=== PATIENT | female | born 1945 | race Caucasian/White ===

== ENCOUNTER 2024-10-22 07:50 | Outpatient (REF) | payer MEDICARE, SELFPAY ==
--- NOTE | ~2024-10-22 | FL_ITS ---
EXAMINATION: XR FLUOROSCOPY ESOPHAGRAM CLINICAL INFORMATION: Dysphagia, feels food is getting stuck , and sometimes going down the wrong pipe . History of GERD. COMPARISON: None TECHNIQUE: Fluoroscopic air contrast upper GI examination was performed utilizing standard techniques with thin and thick barium and effervescent granules. Numerous spot images were obtained. Several fluoroscopic image hold cine sequences were also obtained. FINDINGS: UPPER GI SERIES: Lateral cine images of the oropharynx and hypopharynx demonstrate normal swallow mechanism with normal epiglottic inversion and soft palate elevation. No laryngeal penetration, glottic or subglottic aspiration identified. No nasopharyngeal reflux present. Hypopharyngeal structures appear normal without evidence of mass or diverticulum. There was no significant cricopharyngeal achalasia. Dual and single contrast images of the esophagus demonstrate normal caliber, contour, and mucosal pattern. No evidence of stricture, mass, or ulcerations identified. Esophageal peristalsis was moderately to severely disordered. There was significant stasis of the esophageal barium column in the RPO position. Near corkscrew appearance at times. Small type I hiatus hernia. Mild gastroesophageal reflux observed during the examination, to the level of the aortic arch. Dual contrast and single contrast images of the stomach demonstrated normal contour. Diffusely thickened rugal folds noted. Innumerable small round and oval filling defects throughout the stomach suggestive of hyperplastic polyps. No gross ulcer or mass. Contrast freely passed into the gastric antrum and duodenal bulb without delay. Single and air-contrast images of the duodenal bulb demonstrate no abnormality. The duodenal sweep has a normal appearance, course, and mucosal fold appearance. Rapid transit of contrast was noted, with contrast reaching the colon in approximately 3 minutes. The small bowel has a normal mucosal fold appearance. FLUOROSCOPY TIME: 3 minutes, 19 seconds Number of Spot Images:10 Number of cines obtained: 18 DOSE AREA PRODUCT: 3877 uGy-m2 (microgray-meter squared) FL/FL barium swallow IMPRESSION: 1. Moderate to severely disordered esophageal peristalsis. 2. Small type I hiatus hernia. 3. Episodic gastroesophageal reflux noted to the level of the aortic arch. 4. Innumerable small round and oval filling defects in the stomach, suggestive of hyperplastic polyps. Recommend correlating with endoscopy. 5. Thickened rugal folds of the stomach suggesting gastritis. 6. Rapid transit of contrast into the colon by 3 minutes, uncertain clinical significance. Normal mucosal appearance of the small bowel. Electronically signed by: Frankie Koehler MD 10/22/2024 09:39 AM EDT RP
--- OUTSIDE RECORDS SUMMARY | 2024-10-22 07:52 | XMS_ITS | Patient Health Record ---
Author Organization [facility] yusra Kinney Address [address] [place] [address] Care Team Providers Care Foundry Technician Name Role Phone EscotoCristien Primary Care Provider Unavailab Indira Alvarez Unavailable [phone] Reason For Referral No Information Encounters Encounter Location Date Provider Diagnosis [facility] [address] [place] [address] 05/06/2024 Indira Kenney Plan Of Treatment No Information Insurance Providers Payer Name Payer Address Payer Phone Subscriber Number Group Number Insured Name Patient Relationship to Insured Coverage Start Date Coverage End Date Medicare National [facility] [address] [place] [address] [id number] Judy Sanchez Self - patient is the insured [place] [employer] [address] [place] [address] [id number] Judy Sanchez Self - patient is the insured
== END 2024-10-22 07:51 | disposition home or self-care (01) ==
LOC: HO.XRAY 07:50
PROVIDERS: PCP Family Medicine; Visit Provider Otolaryngology
DX: R13.10 Dysphagia, unspecified (principal)
CPT/HCPCS: 74220

== ENCOUNTER → 2024-10-22 08:00 | Outpatient (BNV) | payer MEDICARE, SELFPAY | PROVIDERS: PCP Family Medicine; Visit Provider Radiology Diagnostic Radiology | DX: K22.89 Other specified disease of esophagus (principal); K44.9 Diaphragmatic hernia without obstruction or gangrene; K21.9 Gastro-esophageal reflux disease without esophagitis | CPT/HCPCS: 74246 ==

== ENCOUNTER 2025-01-01 16:23 | Observation (INO) | payer MEDICARE, OTHER, SELFPAY ==
--- NOTE | ~2025-01-01 | MR_ITS ---
EXAMINATION: MR BRAIN WITHOUT IV CONTRAST HISTORY: ? acute CVA TECHNIQUE: Sagittal T1, and axial T1, FLAIR, T2, gradient echo, and diffusion weighted MR images of the brain were obtained. COMPARISON: There are no prior studies available for comparison. FINDINGS: The pituitary is normal in size. The cerebellar tonsils are normally located. There is mild prominence of the ventricular system and cortical sulci, consistent with atrophy. Perez/white differentiation is normal. There is no mass effect or midline shift. No intra or extra-axial fluid collections are identified. There are no foci of restricted diffusion. Normal vascular flow voids are noted in the basilar and carotid arteries. The visualized paranasal sinuses are clear. MR/MR head/brain wo con IMPRESSION: No acute intracranial abnormality. No evidence of an acute infarct. Electronically signed by: Gustavo Edwards MD 01/02/2025 02:56 PM EDT
--- NOTE | ~2025-01-01 | CT_ITS ---
EXAMINATION: CT HEAD WITHOUT CONTRAST (STROKE PROTOCOL) CLINICAL INFORMATION: Stroke protocol. Slurred speech COMPARISON: None available. TECHNIQUE: Contiguous axial imaging was performed from the skull base to vertex without intravenous administration of contrast. This CT examination was performed using dose optimization techniques as appropriate, variously including the following: *Automated exposure control *Adjustment of mA and/or kV according to patient size (this includes techniques or standardized protocols for targeted exams where dose is matched to indication/reason for exam; i.e. extremities or head) *Use of iterative reconstruction technique DLP: 823 FINDINGS: There is no acute intra-axial, extra-axial bleed, masses or midline shift. There is no acute infarction evolution. The lateral ventricles are symmetrical in size and configuration without enlargement. Bone windows reveal no calvarial abnormality. Windows reveal no calvarial abnormality. The paranasal sinuses and mastoid air cells are well-aerated aerated. CT/CT head for STROKE IMPRESSION: No acute intracranial process seen. This critical result was discussed with Dr. Loraine Junior at 4:57 PM on 01/01/2025. It was ascertained that the content and urgency of the report was understood at the time of direct communication. Electronically signed by: Eder Oakes MD 01/01/2025 04:59 PM EDT
--- NOTE | ~2025-01-01 | CT_ITS ---
CLINICAL HISTORY: slurred speech difficulty word finding CT angiography head and neck with contrast. 3D Postprocessing. Comparison: None provided Findings: Aortic arch and arch vessels are patent. Mild atherosclerotic vascular disease of the aortic arch. Bilateral common carotid arteries are patent. Mild calcified plaque at bilateral carotid bifurcations with no hemodynamically significant stenosis. Bilateral internal carotid arteries and external carotid arteries are patent with no hemodynamically significant stenosis or occlusion. Bilateral vertebral arteries are patent and enhance normally. Bilateral intracranial internal carotid arteries are patent with calcified plaque in the cavernous segment with no hemodynamically significant stenosis. Vertebral basilar junction is unremarkable. Basilar artery is unremarkable and developmentally small. Bilateral anterior, middle and posterior cerebral arteries are patent. No intracranial large vessel occlusion. Branching pattern appears overall symmetric. No aneurysm. Right thyroid lobe is nodular and somewhat heterogeneous with a 1 cm x 1.1 cm round structure at the lateral aspect with hypodense center which could be in the right thyroid lobe or may represent an adjacent abutting lymph node. No cervical mass or fluid collection. Lung apices grossly clear. No acute fracture. Degenerative changes of the spine. IMPRESSION: 1. CT angiography neck demonstrates no hemodynamically significant stenosis. 2. CT angiography brain demonstrates no intracranial large vessel occlusion. 3. Nodular right thyroid lobe with either nodule with hypodense center in the lateral aspect of the right thyroid lobe versus adjacent abutting necrotic node. Possibility of thyroid malignancy not excluded on the basis of this examination follow-up clinical evaluation in thyroid ultrasound is recommended. This document has been electronically signed by: Bela Miguel MD on 01/01/2025 17:39:09
[2025-01-01 16:27] VITALS: BP 207/84; PULSE 75; RESP 18; TEMP 36.6; O2SAT 99; BMI 34.2
--- NOTE | 2025-01-01 16:29 | ECG_ITS ---
Test Reason : ?STROKE Blood Pressure : */* mmHG Vent. Rate : 62 BPM Atrial Rate : 62 BPM P-R Int : 192 ms QRS Dur : 100 ms QT Int : 414 ms P-R-T Axes : 87 -29 42 degrees QTcB Int : 420 ms Normal sinus rhythm with sinus arrhythmia Moderate voltage criteria for LVH, may be normal variant ( R in aVL , [place] product ) Borderline ECG No previous ECGs available Referred By: Anel Perez Electronically Signed By: KRYSTINA STUART
--- NOTE | 2025-01-01 16:33 | ED.NEUROSD ---
HPI - Neuro Symptoms/Deficit General Chief Complaint: Headache Stated Complaint: slurred speech, sent from PCP Time Seen by Provider: 01/01/25 16:32 Source: patient, family and old records reviewed Mode of arrival: ambulatory Limitations: no limitations History of Present Illness ED Provider: VICKIE PENG Narrative: 79 yo female with PMH of HTN, HLD, GERD here with c/o abrupt onset word finding difficulties while trying to write an e-mail at 330pm today. She couldn't think of the words to write. She called a family member and they also noted her word finding difficulties on the phone. It has since improved. She had no other symptoms and speech was not slurred. She has no recent travel, illness, trauma. She has no hx of afib or stroke. She is not on thinners but only takes aspirin daily. Onset (ago): hour(s) (330pm today) Timing confirmed by: family member Location: speech History of same: No Severity: moderate Relieving factors: rest Exacerbating factors: none Context: sudden onset On Anticoagulants: No Associated symptoms: denies other symptoms Treatments Prior to Arrival: none Related Data Allergies Allergy/AdvReac Type Severity Reaction Status Date / Time Penicillins (PCN) Allergy Unknown Verified 01/01/25 16:32 Sulfa (Sulfonamide Allergy Unknown Verified 01/01/25 16:32 Antibiotics) Review of Systems Review of Systems: Constitutional : No Fever, No Chills, No Fatigue ENT/Mouth : No sore throat, No Rhinorrhea Eyes: No Eye Pain, No Swelling, No Redness Cardiovascular : No Chest Pain, No SOB, No Dyspnea on Exertion Respiratory : No Cough, No Sputum Gastrointestinal : No Nausea, No Vomiting, No Diarrhea, No abdominal Pain Genitourinary : No Dysuria, No Urinary Frequency, No Hematuria, Musculoskeletal : No joint pain, No Myalgias, No Joint Swelling Skin : No Skin Lesions, No rash Neuro : No Weakness, No Numbness, No Dizziness, no Headache All other systems reviewed and are negative PMFSH Past Medical History Attestation statement: The following information was validated with the patient. Source: old records reviewed Medical History GERD (gastroesophageal reflux disease) HLD (hyperlipidemia) HTN (hypertension) Social History Social History (Updated 01/01/25 @ 16:39 by Loraine Junior DO) Patient Tobacco Use Status: Tobacco use Unknown Advance Directives: No Advance Directives Information Provided: No Do you have a plan to hurt others: No Plan Physical Exam Vital Signs: Vital Signs: Last Vital Signs Temp 98.3 F 01/01/25 18:25 Pulse 66 01/01/25 18:25 Resp 18 01/01/25 18:25 BP 125/62 01/01/25 18:25 Pulse Ox 97 01/01/25 18:25 O2 Del Method Room Air 01/01/25 18:25 BMI result Body Mass Index 34.2 Appearance: Alert. Oriented X3. No acute distress. Eyes: Pupils equal, round and reactive to light. ENT: Pharynx normal. Neck: Normal inspection. Neck supple. CVS: Normal heart rate and rhythm. Pulses normal. Respiratory: No respiratory distress. Breath sounds normal. Abdomen: Soft and nontender. Skin: Skin warm and dry. Normal skin color. Normal skin turgor. Extremities: No lower extremity edema. No calf ttp Neuro: Oriented X 3. No motor deficit. No sensory deficit. CN2-12 intact Medications Administered Discontinued Medications Generic Name Dose Route Start Last Admin Trade Name Freq PRN Reason Stop Dose Admin Aspirin 81 mg 01/01/25 18:18 01/01/25 18:27 Aspirin 81 Mg Tab.Chew PO 01/01/25 18:19 81 mg ONCE ONE Administration Iohexol 100 ml 01/01/25 16:56 01/01/25 16:57 Iohexol 350 Mg/Ml 100 Ml Infus..Btl IV 01/01/25 16:57 70 ml ONCE ONE Administration Medical Decision Making Medical Decision Making MDM Narrative: 79 yo female with PMH of HTN, HLD, GERD here with c/o aphasia while writing an e-mail and talking to [employer]. She has NIH 0 on arrival and not a candidate for TNK. She will go through stroke protocol. Possible TIA at this time will need labs, CT head/CTA, EKG for afib. Plan to admit for TIA work up pending his work up Differential Diagnosis Differential Diagnoses: The differential diagnosis associated with the presentation includes TIA, lyte abnormality Admission/Observation Consideration of admission/observation: Escalation of care including admission/observation considered admit for TIA Consult Healthcare Provider Management of the patient was discussed with: Hospitalist (will admit) Lab Data [facility] Lab Attestation statement: I reviewed the patient's lab results. 01/01/25 17:55 01/01/25 17:55 Labs: Lab Results 01/01/25 01/01/25 Range/Units 17:55 17:56 WBC 6.3 (4.8-10.8) X10*3/uL RBC 4.37 (4.20-5.50) X10*6/uL Hgb 12.8 (12.0-16.0) g/dl Hct 36.0 L (37.0-47.0) % MCV 82.4 (80.0-98.0) fL MCH 29.3 (27.0-33.0) pg MCHC 35.6 H (31.0-35.0) g/dl RDW 13.0 (11.0-16.0) % Plt Count 180 (160-400) X10*3/uL MPV 10.0 (9.4-12.3) fL Immature Gran % (Auto) 0.2 (0.0-0.4) % Neut % (Auto) 67.6 (45-73) % Lymph % (Auto) 21.8 (20-40) % [place] % (Auto) 8.0 (2-11) % Eos % (Auto) 1.9 (0-4) % Baso % (Auto) 0.5 (0-2) % Lymph # (Auto) 1.4 (1.2-4.9) X10*3/uL [place] # (Auto) 0.5 (0.1-1.2) X10*3/uL Eos # (Auto) 0.1 (0.0-0.4) X10*3/uL Baso # (Auto) 0.0 (0.0-0.2) X10*3/uL Abs Immat Gran (auto) 0.01 (0.00-0.03) X10*3/uL Absolute Neuts (auto) 4.3 (2.0-8.3) x10*3/uL Absolute Nucleated RBC 0.000 (0.0-0.012) X10*3/uL Nucleated RBC % (auto) 0.0 (0.0-0.2) /100WBC PT 11.4 (10.9-12.4) SEC INR 1.0 (0.9-1.1) APTT 29.2 (26.7-34.1) SEC Sodium 142 (135-145) mmol/L Potassium 4.5 (3.3-5.1) mmol/L Chloride 104 (96-108) mmol/L Carbon Dioxide 32 H (22-29) mmol/L Anion Gap 11 L (12-20) BUN 18 H (9-16) mg/dL Creatinine 0.95 (0.5-1.4) mg/dL Estim Creat Clear Calc 53.1 Estimated GFR 57 Random Glucose 104 (60-115) mg/dL Calcium 9.1 (8.4-10.2) mg/dL Troponin I High Sens 17.6 H (<3.5-17.0) ng/L Triglycerides 112 (<150) mg/dL Cholesterol 145 (<200) mg/dL LDL Cholesterol, Calc 84 (<100) mg/dL HDL Cholesterol 39 L (>40) mg/dL Independent Interpretation I performed an independent interpretation of an: EKG and CT Scan (no ICH, no LVO) Interpretation: Rate: 62 Rhythm: NSR [place]: left Normal P waves. Normal HENRI. Normal QRS complex. ST T wave : inverted t waves V1, LVH noted, no SYBIL qTC: 420 prior studies: no acute ischemia The study has been interpreted contemporaneously by me. . Radiology Impression Discussion of test interpretation with radiology: I have reviewed the radiologist's reading. Independent Historian Clinical information obtained from an independent historian. History obtained from or confirmed by: Other (family) External Record Review External record reviewed: Outpatient record NIH Stroke Scale Internal: Initial- Upon Arrival Level of Consciousness: Alert Level of Consciousness Questions: Answers both questions correctly Level of Consciousness Commands: Performs both tasks correctly Best Gaze: Normal Visual: No visual loss Facial Palsy: Normal Motor Arm (Right): No drift Motor Arm (Left): No drift Motor Leg (Right): No drift Motor Leg (Left): No drift Limb Ataxia: Absent Sensory: Normal Best Language: No aphasia Dysarthia: Normal Extinction and Inattention: No abnormality Score: 0 Critical Care Time Critical Care Time Critical Care Time: Yes Total Critical Care Time: 35 Attestation: review of discussion, family consult, review of records, STROKE protocol, admission I attest to this time spent taking care of the patient Discharge Plan Discharge Clinical Impression: Brain TIA, Thyroid mass Patient Disposition: Admitted As Inpatient Print Language: American
[2025-01-01] MEDS: iohexoL 350 MG/ML 100 ML INFUS..BTL IV (16:57)
[2025-01-01 18:00] LABS: MANUAL DIFF FLAG NO
[2025-01-01 18:02] LABS: Hematocrit 36.0 % (37.0-47.0); Hemoglobin 12.8 g/dl (12.0-16.0); Imm Gran Abs Auto 0.01 X10*3/uL (0.00-0.03); Imm Gran Pct Auto 0.2 % (0.0-0.4); Lymphocytes Absolute Auto 1.4 X10*3/uL (1.2-4.9); Mean Corpuscular HGB Conc 35.6 g/dl (31.0-35.0); Mean Corpuscular Hemoglobin 29.3 pg (27.0-33.0); Mean Corpuscular Volume 82.4 fL (80.0-98.0); NRBC Abs Auto 0.000 X10*3/uL (0.0-0.012); NRBC Pct Auto 0.0 /100WBC (0.0-0.2); Platelet Count 180 X10*3/uL (160-400); Red Blood Count 4.37 X10*6/uL (4.20-5.50); White Blood Count 6.3 X10*3/uL (4.8-10.8)
[2025-01-01 18:16] LABS: Anion Gap 11 (12-20); Blood Urea Nitrogen 18 mg/dL (9-16); Calcium 9.1 mg/dL (8.4-10.2); Carbon Dioxide 32 mmol/L (22-29); Chloride 104 mmol/L (96-108); Cholesterol 145 mg/dL (<200); Creatinine Clr Calc Pharmacy 53.1; Estimated Glomerular Filt Rate 57; HDL Cholesterol 39 mg/dL (>40); Potassium 4.5 mmol/L (3.3-5.1); Sodium 142 mmol/L (135-145); Triglycerides 112 mg/dL (<150)
[2025-01-01 18:23] LABS: Troponin-I High Sensitivity 17.6 ng/L (<3.5-17.0)
[2025-01-01 18:25] VITALS: BP 125/62; PULSE 66; RESP 18; TEMP 36.8; O2SAT 97
[2025-01-01 18:29] LABS: INTERNATIONAL NORM RATIO 1.0 (0.9-1.1); Prothrombin Time 11.4 SEC (10.9-12.4)
[2025-01-01 18:32] LABS: Partial Thromboplastin Time 29.2 SEC (26.7-34.1)
[2025-01-01 19:09] LABS: Stroke Lab Use COMPLETE
--- NOTE | 2025-01-01 19:12 | P.HPHOSP_ITS ---
History of Present Illness Date of Service: 01/01/25 Chief Complaint: difficulty with words This is a 79-year-old female with pertinent history of hypertension, mixed hyperlipidemia, gastroesophageal reflux disease who presents to the emergency department for evaluation of difficulty with speech. Patient states while she was at work she had abrupt onset of difficulty with words while she was trying to type an e-mail. Patient called her daughter who stated that the patient also had difficulty with words on the phone. Patient does not remember but thinks she had word-finding difficulty and difficulty with speech. This only lasted for about 15-20 minutes and resolved. No history of irregular heart rhythm or stroke or ACS in the past. She is compliant with her home medications and takes an aspirin every day. No vision changes extremity. No fever, chills, chest pain, palpitations, shortness of breath, abdominal pain, changes in urinary or bowel habits. In the emergency department, CT head without any acute abnormality. Review of Systems 2 Constitutional: Constitutional: Reports no additional constitutional complaints Cardiovascular: Cardiovascular: Reports no additional cardiovascular complaints Respiratory: Respiratory: Reports no additional respiratory complaints Gastrointestinal: Gastrointestinal: Reports no additional gastrointestinal complaints Genitourinary: Genitourinary: Reports no additional female genitourinary complaints Neurologic: Reports Abnormal speech present [facility] Medical History GERD (gastroesophageal reflux disease) HLD (hyperlipidemia) HTN (hypertension) Pertinent family history: No family history of early CAD Social History Unable to assess alcohol history related to: Unknown Patient Tobacco Use Status: Tobacco use Unknown Smoked in Last 30 Days: No Use of substances other than those prescribed or required for medical reasons: Unknown Advance Directives: No Advance Directives Information Provided: No Do you have a plan to hurt others: No Plan Meds Allergies Allergy/AdvReac Type Severity Reaction Status Date / Time Penicillins (PCN) Allergy Unknown Verified 01/01/25 16:32 Sulfa (Sulfonamide Allergy Unknown Verified 01/01/25 16:32 Antibiotics) Physical Exam 2 Vital Signs and Narrative: Vital Signs: Last Vital Signs Temp 98.3 F 01/01/25 18:25 Pulse 66 01/01/25 18:25 Resp 18 01/01/25 18:25 BP 125/62 01/01/25 18:25 Pulse Ox 97 01/01/25 18:25 O2 Del Method Room Air 01/01/25 18:25 BMI result Body Mass Index 34.2 Const: Other: Elderly female lying in bed in no distress Neck supple, no JVD Regular rate and rhythm, S1-S2 heard Regular breath sounds bilaterally, no wheezing or crackles appreciated Abdomen soft nontender, no guarding, no rigidity Patient is awake, alert and oriented to self, place, time and person ; no focal motor deficit, no pronator drift, no facial droop, or nystagmus Psych: Normal mood No pedal edema Neuro: Speech: Abnormal speech present Results Labs 01/01/25 17:55 01/01/25 17:55 Labs: Laboratory Results - last 24 hr 01/01/25 17:55 MCV 82.4 MCH 29.3 MCHC 35.6 H RDW 13.0 Plt Count 180 MPV 10.0 Immature Gran % (Auto) 0.2 Neut % (Auto) 67.6 Lymph % (Auto) 21.8 [place] % (Auto) 8.0 Eos % (Auto) 1.9 Baso % (Auto) 0.5 Lymph # (Auto) 1.4 [place] # (Auto) 0.5 Eos # (Auto) 0.1 Baso # (Auto) 0.0 Abs Immat Gran (auto) 0.01 Absolute Neuts (auto) 4.3 Absolute Nucleated RBC 0.000 Nucleated RBC % (auto) 0.0 PT 11.4 INR 1.0 APTT 29.2 Anion Gap 11 L Estim Creat Clear Calc 53.1 Estimated GFR 57 Random Glucose 104 Calcium 9.1 Triglycerides 112 Cholesterol 145 LDL Cholesterol, Calc 84 HDL Cholesterol 39 L Imaging Radiologist's Impressions: Impressions Head CT 01/01/25 16:45 IMPRESSION: No acute intracranial process seen. This critical result was discussed with Dr. Loraine Junior at 4:57 PM on 01/01/2025. It was ascertained that the content and urgency of the report was understood at the time of direct communication. Electronically signed by: Eder Oakes MD 01/01/2025 04:59 PM EDT Assessment and Plan (1) Aphasia: Status: Acute Plan This is a 79-year-old female with pertinent history of hypertension, mixed hyperlipidemia, gastroesophageal reflux disease who presents to the emergency department for evaluation of difficulty with speech. #. Expressive aphasia with prominent word-finding difficulty, transient: Symptoms have resolved. Will admit patient with cardiac monitoring for observation. TIA versus acute CVA versus other. Obtaining MRI and consulted Neurology. A1c and lipid panel pending #. Hypertension: Hold antihypertensives for possible acute CVA #. Mixed hyperlipidemia: On statin #. Gastroesophageal reflux disease: On PPI #. Nodular right thyroid lobe on imaging: Outpatient follow-up with thyroid ultrasound. Obtaining TSH Med rec pending DVT prophylaxis: Lovenox Full code. Discussed with patient at bedside Quality Stroke Does the patient have a stroke diagnosis?: No VTE Prior VTE?: No VTE Risk Level:: Medical - moderate - high VTE Device Contraindication: Treatment Not Indicated VTE Drug Contraindication: N/A - Med Ordered
[2025-01-01 20:24] VITALS: BP 194/89; PULSE 56; RESP 18; TEMP 36.5; O2SAT 97
--- NOTE | 2025-01-01 20:33 | PHA.MEDREC ---
Addendum entered by Juice Foley PharmD 01/01/25 20:36: reviewed Original Note: Pharmacy Consult ? Medication Reconciliation Pharmacy has completed the medication reconciliation. Patient was able to confirm all of her medications and they matched claims. Patient states she takes all her medications at bedtime. patient last had her medications last night.
--- NOTE | 2025-01-01 22:00 | PC.NURSE ---
This television script writer assumed care of this Pt at 1900. Pt A&Ox3, pt medicated per JUL for GARCIA. Pt ambulated to BR independent with steady gait. Passed swallow eval, Dr. Sharma made aware. Neuros intant.
--- NOTE | 2025-01-02 | ECG_ITS ---
Test Reason : rhythm change Blood Pressure : */* mmHG Vent. Rate : 68 BPM Atrial Rate : 68 BPM P-R Int : 188 ms QRS Dur : 102 ms QT Int : 418 ms P-R-T Axes : * -36 49 degrees QTcB Int : 444 ms Sinus rhythm with Premature atrial complexes Left axis deviation Moderate voltage criteria for LVH, may be normal variant ( R in aVL , [place] product ) Abnormal ECG When compared with ECG of 01-Jan-2025 17:04, Premature atrial complexes are now Present Referred By: Krystal Sánchez Electronically Signed By: KRYSTINA STUART
[2025-01-02] MEDS: 0.9 % Sodium Chloride Flush 3 ML SYRINGE IVFLUSH (00:01)
[2025-01-02 03:07] VITALS: BP 149/51; PULSE 59; RESP 18; TEMP 36.6; O2SAT 97
[2025-01-02 05:13] LABS: MANUAL DIFF FLAG NO
[2025-01-02 05:15] LABS: Hematocrit 33.0 % (37.0-47.0); Hemoglobin 11.9 g/dl (12.0-16.0); Imm Gran Abs Auto 0.02 X10*3/uL (0.00-0.03); Imm Gran Pct Auto 0.3 % (0.0-0.4); Lymphocytes Absolute Auto 1.1 X10*3/uL (1.2-4.9); Mean Corpuscular HGB Conc 36.1 g/dl (31.0-35.0); Mean Corpuscular Hemoglobin 29.2 pg (27.0-33.0); Mean Corpuscular Volume 81.1 fL (80.0-98.0); NRBC Abs Auto 0.000 X10*3/uL (0.0-0.012); NRBC Pct Auto 0.0 /100WBC (0.0-0.2); Platelet Count 151 X10*3/uL (160-400); Red Blood Count 4.07 X10*6/uL (4.20-5.50); White Blood Count 7.3 X10*3/uL (4.8-10.8)
[2025-01-02 05:43] LABS: Anion Gap 11 (12-20); Blood Urea Nitrogen 18 mg/dL (9-16); Calcium 8.7 mg/dL (8.4-10.2); Carbon Dioxide 31 mmol/L (22-29); Chloride 104 mmol/L (96-108); Creatinine Clr Calc Pharmacy 53.1; Estimated Glomerular Filt Rate 57; Potassium 3.9 mmol/L (3.3-5.1); Sodium 142 mmol/L (135-145)
[2025-01-02 06:00] LABS: Thyroid Stimulating Hormone 4.07 uIU/mL (0.32-4.0)
[2025-01-02 07:10] LABS: Hemoglobin A1C 141.4991 umol/L; Total Hemoglobin (HGBA1C) 3412.3147 umol/L
[2025-01-02 07:11] VITALS: BP 151/49; PULSE 61; RESP 16; TEMP 36.9; O2SAT 97
--- NOTE | 2025-01-02 07:11 | PC.NURSE ---
MRI screening form complete and faxed.
[2025-01-02 07:45] VITALS: BP 176/59; PULSE 58; RESP 20; TEMP 37.2; O2SAT 98
--- NOTE | 2025-01-02 08:05 | P.PNIM_ITS ---
Subjective Subjective Date of Service: 01/03/25 Physical Exam 2 Vital Signs: Vital Signs: Last Vital Signs Temp 98.9 F 01/02/25 07:45 Pulse 58 01/02/25 07:45 Resp 20 01/02/25 07:45 BP 176/59 H 01/02/25 07:45 Pulse Ox 98 01/02/25 07:45 O2 Del Method Room Air 01/02/25 07:45 BMI result Body Mass Index 34.2 Objective Data Active Medications Acetaminophen (Acetaminophen 325 Mg Tablet) 650 mg PO Q6H PRN PRN Reason: Pain, Mild 1-3,fever,headache Last Admin: 01/01/25 21:10 Dose: 650 mg Documented By: JODY Calcium Carbonate (Calcium Carbonate 750 Mg Tab.Chew) 750 mg PO Q4H PRN PRN Reason: Heartburn Enoxaparin Sodium (Enoxaparin Sodium 40 Mg/0.4 Ml Syringe) 40 mg SUBCUT Q24H [facility] Last Admin: 01/01/25 21:11 Dose: 40 mg Documented By: JODY Magnesium Hydroxide (Milk Of Magnesia 30 Ml Oral.Susp) 30 ml PO DAILY PRN PRN Reason: Constipation Melatonin (Melatonin 3 Mg Tablet) 6 mg PO BEDTIME PRN PRN Reason: Insomnia Ondansetron HCl (Ondansetron Hcl 4 Mg/2 Ml Vial) 4 mg IVPUSH Q8H PRN PRN Reason: Nausea and Vomiting Sodium Chloride (0.9 % Sodium Chloride Flush 3 Ml Syringe) 3 ml IVFLUSH QSHIFT [facility] Last Admin: 01/02/25 07:48 Dose: Not Given Documented By: JAZMYNE Non-Admin Reason: See Note Labs 01/03/25 03:34 01/03/25 03:34 Labs: Laboratory Results - last 24 hr 01/01/25 01/01/25 01/02/25 17:55 17:56 05:04 MCV 82.4 81.1 MCH 29.3 29.2 MCHC 35.6 H 36.1 H RDW 13.0 12.9 Plt Count 180 151 L MPV 10.0 9.6 Immature Gran % (Auto) 0.2 0.3 Neut % (Auto) 67.6 73.9 H Lymph % (Auto) 21.8 14.4 L [place] % (Auto) 8.0 9.1 Eos % (Auto) 1.9 1.9 Baso % (Auto) 0.5 0.4 Lymph # (Auto) 1.4 1.1 L [place] # (Auto) 0.5 0.7 Eos # (Auto) 0.1 0.1 Baso # (Auto) 0.0 0.0 Abs Immat Gran (auto) 0.01 0.02 Absolute Neuts (auto) 4.3 5.4 Absolute Nucleated RBC 0.000 0.000 Nucleated RBC % (auto) 0.0 0.0 PT 11.4 INR 1.0 APTT 29.2 Anion Gap 11 L 11 L Estim Creat Clear Calc 53.1 53.1 Estimated GFR 57 57 Random Glucose 104 108 Estimat Average Glucose 123 Hemoglobin A1c % 5.9 Calcium 9.1 8.7 Triglycerides 112 Cholesterol 145 LDL Cholesterol, Calc 84 HDL Cholesterol 39 L TSH 4.07 H Assessment and Plan (1) Aphasia: Status: Acute (2) Brain TIA: Status: Acute (3) Thyroid mass: Status: Acute (4) HTN (hypertension): Status: Acute (5) HLD (hyperlipidemia): Status: Acute (6) GERD (gastroesophageal reflux disease): Status: Acute Plan 79-year-old female with pertinent history of hypertension, mixed hyperlipidemia, gastroesophageal reflux disease who presents to the emergency department for evaluation of difficulty with speech. #. Expressive aphasia with prominent word-finding difficulty, transient: Symptoms have resolved. Will admit patient with cardiac monitoring for observation. TIA versus acute CVA versus other. Obtaining MRI and consulted Neurology. A1c and lipid panel pending #. Hypertension: Hold antihypertensives for possible acute CVA #. Mixed hyperlipidemia: On statin #. Gastroesophageal reflux disease: On PPI #. Nodular right thyroid lobe on imaging: Outpatient follow-up with thyroid ultrasound. Obtaining TSH Med rec pending DVT prophylaxis: Lovenox Full code. Discussed with patient at bedside Quality Stroke Does the patient have a stroke diagnosis?: No VTE Prior VTE?: No VTE Risk Level:: Medical - moderate - high VTE Device Contraindication: Treatment Not Indicated VTE Drug Contraindication: N/A - Med Ordered
--- NOTE | 2025-01-02 08:13 | PC.NURSE ---
Addendum entered by Alice Negrete RN 01/02/25 08:24: MD sent picture of EKG at this time. Noted that he would be down to pt bedside shortly. Primary nurse aware. Original Note: This scrap charger notified of HR rhythm change, leads checked and fixed on PT, this RN still noted rhythm change. EKG order placed, attending Osama notified at this time.
--- NOTE | 2025-01-02 08:38 | P.CNNE_ITS ---
History of Present Illness Data of Consult Service Date: 01/02/25 Primary Care Provider: Juliette Escoto MD HPI Reason for consult: Difficulty speaking 79 years old woman with hypertension who did not take her blood pressure medicine the night before and next day when she was talking she noted that she could not say the words she wanted to say. She tried to type or e-mail message and could not, with the words she wanted to type. There was no associated weakness or numbness or headache. She had not taken any new medicine and she was not sick with cold or flu. These symptoms lasted for about 40 minutes and were resolved when she came to emergency room. She said that something like this had happened once many years ago. Initial evaluation did not reveal any acute finding. Review of Systems 2 Review of Systems: No recent cold or flu-like illness or cardiac symptoms PMFSH Past Medical History Medical History (Updated 01/02/25 @ 08:06 by Krystal Sánchez MD) GERD (gastroesophageal reflux disease) HLD (hyperlipidemia) HTN (hypertension) Social History Social History Unable to assess alcohol history related to: Unknown Patient Tobacco Use Status: Tobacco use Unknown Smoked in Last 30 Days: No Use of substances other than those prescribed or required for medical reasons: Unknown Advance Directives: No Advance Directives Information Provided: No Do you have a plan to hurt others: No Plan Meds Allergies Allergy/AdvReac Type Severity Reaction Status Date / Time Penicillins (PCN) Allergy Unknown Verified 01/01/25 16:32 Sulfa (Sulfonamide Allergy Unknown Verified 01/01/25 16:32 Antibiotics) Active Medications: Current Medications Acetaminophen (Acetaminophen 325 Mg Tablet) 650 mg PO Q6H PRN PRN Reason: Pain, Mild 1-3,fever,headache Last Admin: 01/01/25 21:10 Dose: 650 mg Calcium Carbonate (Calcium Carbonate 750 Mg Tab.Chew) 750 mg PO Q4H PRN PRN Reason: Heartburn Enoxaparin Sodium (Enoxaparin Sodium 40 Mg/0.4 Ml Syringe) 40 mg SUBCUT Q24H JOSE Last Admin: 01/01/25 21:11 Dose: 40 mg Magnesium Hydroxide (Milk Of Magnesia 30 Ml Oral.Susp) 30 ml PO DAILY PRN PRN Reason: Constipation Melatonin (Melatonin 3 Mg Tablet) 6 mg PO BEDTIME PRN PRN Reason: Insomnia Ondansetron HCl (Ondansetron Hcl 4 Mg/2 Ml Vial) 4 mg IVPUSH Q8H PRN PRN Reason: Nausea and Vomiting Sodium Chloride (0.9 % Sodium Chloride Flush 3 Ml Syringe) 3 ml IVFLUSH QSHIFT [facility] Last Admin: 01/02/25 07:48 Dose: Not Given Home Medications ?Medication ?Instructions ?Recorded ?Confirmed ?Last Taken ?Type aspirin 81 mg tablet 81 mg PO BEDTIME 01/01/2512/31/24 History gabapentin 400 mg capsule 400 mg PO BEDTIME 01/01/25 0 01/01/25 12/31/24 History hydrochlorothiazide 12.5 mg tablet 12.5 mg PO BEDTIME 01/01/25 01/01/25 12/31/24 History losartan 25 mg tablet 25 mg PO BEDTIME 01/01/2512/31/24 History nystatin 100,000 unit/gram topical 1 appl topical BID PRN Rash 01/01/25 01/01/25 Unknown History powder pantoprazole 20 mg tablet,delayed 20 mg PO BEDTIME 11/2001/01/25 12/31/24 History release simvastatin 20 mg tablet 20 mg PO BEDTIME 01/01/2512/31/24 History Physical Exam 2 Vital Signs: Vital Signs: Last Vital Signs Temp 98.9 F 01/02/25 07:45 Pulse 58 01/02/25 07:45 Resp 20 01/02/25 07:45 BP 176/59 H 01/02/25 07:45 Pulse Ox 98 01/02/25 07:45 O2 Del Method Room Air 01/02/25 07:45 BMI result Body Mass Index 34.2 Neuro: Other: She is alert and awake with normal spontaneity of speech fluency comprehension and affect. She is able to name and repeat and read with comprehension. Face is symmetrical. Visual hernandez are full. Extraocular muscles were intact. There was no nystagmus or gaze deviation. There was no pronator drift. There was no visual was sensory extinction. Deep tendon reflexes are trace to absent with flexor plantars. There was no focal arm or leg weakness. Speech is normal. Results Labs 01/02/25 05:04 01/02/25 05:04 Labs: Short CBC 01/01/25 01/02/25 Range/Units 17:55 05:04 WBC 6.3 7.3 (4.8-10.8) X10*3/uL Hgb 12.8 11.9 L (12.0-16.0) g/dl Hct 36.0 L 33.0 L (37.0-47.0) % Plt Count 180 151 L (160-400) X10*3/uL BMP 01/01/25 01/02/25 17:55 05:04 Sodium 142 142 Potassium 4.5 3.9 Chloride 104 104 Carbon Dioxide 32 H 31 H BUN 18 H 18 H Creatinine 0.95 0.95 Calcium [address] did not reveal any acute abnormality. Mild cerebellar and cerebral atrophy is noted. CTA of brain and neck did not reveal any large vessel significant disease. A thyroid nodule was noted. Assessment and Plan (1) Aphasia: Status: Acute 79 years old woman with uncontrolled hypertension presented with an episode of motor aphasia. She said that she had a similar episode many years ago. Likely explanation is vascular disease either from uncontrolled hypertension or atherosclerosis resulting in atherothrombotic small vessel or medium size vessel disease. Cerebral embolism is another possibility. My recommendation is to obtain a noncontrast MRI of brain that could put more light into it. Blood pressure control, lipid management, and anti-platelet therapy is recommended. For now I would put her on aspirin 81 mg +clopidogrel 75 mg daily. Cardiac evaluation is also needed as there is fair possibility of cardiac source of embolism. Procedures Date of Service Date of Service: 01/02/25
[2025-01-02 09:05] LABS: Magnesium 2.2 mg/dL (1.6-2.6)
--- NOTE | 2025-01-02 10:35 | MHC.CM.PN ---
Ananya 01/02/25, Pt. lives by herself, she does not have home health services, or use DME. Her dtr Jerrica is HCP, copy requested. PCP confirmed: Juliette Escoto. Pt. is able to arrange transport home at DC, DCP: home, self care, CM to follow for DC needs.
--- NOTE | 2025-01-02 12:42 | PC.NURSE ---
transport here to bring pt down to MRI, pt requesting medications prior to going d/t anxiety. No PRN available, messaged at this time. awaiting new orders at this time.
[2025-01-02 17:15] VITALS: BP 164/60; PULSE 63; RESP 16; TEMP 36.9; O2SAT 95
--- NOTE | 2025-01-02 17:16 | PC.NURSE ---
patient remains in ED, moved into hospital bed in ED 3 for comfort. patient is alert and oriented x4, able to ambulate with steady gait
--- NOTE | 2025-01-02 18:17 | ECG_ITS ---
Test Reason : BRADYCARDIA Blood Pressure : */* mmHG Vent. Rate : 70 BPM Atrial Rate : 70 BPM P-R Int : 186 ms QRS Dur : 100 ms QT Int : 408 ms P-R-T Axes : 75 -34 58 degrees QTcB Int : 440 ms Sinus rhythm with Premature supraventricular complexes and with occasional Premature ventricular complexes Left axis deviation Moderate voltage criteria for LVH, may be normal variant ( R in aVL , José Antonio product ) Abnormal ECG When compared with ECG of 02-Jan-2025 08:12, Premature ventricular complexes are now Present Referred By: Krystal Sánchez Electronically Signed By: KRYSTINA STUART
--- NOTE | 2025-01-02 18:23 | PC.NURSE ---
patient noted to be bradycardic in the 30s on tele, at bedside patient is alert, oriented and stated that she had just came back from the bathroom. patient denies any chest pain/sob/weakness. ekg done, rate showing in 70s contradicting tele monitor reading low 40s. inpatient attending notified and at bedside. there is suspicion that tele monitor deuce are malfunctioning. patient leads changed, rate showing in the 70s-80s.
[2025-01-02 18:57] LABS: Hemoglobin A1C 135.2832 umol/L; Total Hemoglobin (HGBA1C) 3320.3775 umol/L
[2025-01-02 19:00] LABS: Cholesterol 136 mg/dL (<200); HDL Cholesterol 40 mg/dL (>40); Triglycerides 73 mg/dL (<150)
[2025-01-02 22:45] VITALS: BP 185/61; PULSE 69; RESP 12; TEMP 36.4; O2SAT 95
[2025-01-03] VITALS (7 sets, daily range): BP systolic 135–171; BP diastolic 52–72; PULSE 56–63; RESP 12–20; TEMP 36.1–37.1; O2SAT 95–96; BMI 30.6
[2025-01-03 03:40] LABS: MANUAL DIFF FLAG NO
[2025-01-03 03:43] LABS: Hematocrit 33.7 % (37.0-47.0); Hemoglobin 12.3 g/dl (12.0-16.0); Imm Gran Abs Auto 0.01 X10*3/uL (0.00-0.03); Imm Gran Pct Auto 0.2 % (0.0-0.4); Lymphocytes Absolute Auto 1.5 X10*3/uL (1.2-4.9); Mean Corpuscular HGB Conc 36.5 g/dl (31.0-35.0); Mean Corpuscular Hemoglobin 29.6 pg (27.0-33.0); Mean Corpuscular Volume 81.0 fL (80.0-98.0); NRBC Abs Auto 0.000 X10*3/uL (0.0-0.012); NRBC Pct Auto 0.0 /100WBC (0.0-0.2); Platelet Count 158 X10*3/uL (160-400); Red Blood Count 4.16 X10*6/uL (4.20-5.50); White Blood Count 5.6 X10*3/uL (4.8-10.8)
[2025-01-03 04:06] LABS: Alanine Aminotransferase 14 U/L (0-31); Albumin Level 3.7 g/dL (3.5-5.0); Alkaline Phosphatase 52 U/L (39-117); Anion Gap 12 (12-20); Aspartate Amino Transferase 21 U/L (5-31); Blood Urea Nitrogen 16 mg/dL (9-16); Calcium 8.5 mg/dL (8.4-10.2); Carbon Dioxide 29 mmol/L (22-29); Chloride 106 mmol/L (96-108); Creatinine Clr Calc Pharmacy 59.4; Estimated Glomerular Filt Rate > 60; Potassium 3.6 mmol/L (3.3-5.1); Sodium 143 mmol/L (135-145); Total Protein 6.1 g/dL (6.5-8.0)
--- NOTE | 2025-01-03 06:24 | PC.NURSE ---
Patient ambulated to bathroom independently with a steady gait this morning upon waking up.
[2025-01-03] MEDS: 0.9 % Sodium Chloride Flush 3 ML SYRINGE IVFLUSH (07:20)
--- NOTE | 2025-01-03 11:28 | MHC.CM.PN ---
Per ROUND discussion, Patient will have an ECHO today and may be ready to dc to home. CM will follow.
--- NOTE | 2025-01-03 12:00 | CA_ITS ---
Transthoracic Echocardiogram Patient (Last, First, Middle): Judy Sanchez, Gender: Female Date of : 1945 Age: 79 Procedure Date: 01/03/2025 Procedure Type: Transthoracic Echocardiogram Location: ER Height: 162.56 cm Weight: 90.27 kg BSA: 1.95 m2 Heart Rate: 59 bpm BP: 145 / 67 mmHg Flight Deck Officer: MARTHA Referring MD: Krystal Sánchez MD Symptoms: TIA - bigeminy possible LVH/ clearance ECHO Study Quality: Adequate ECG Rhythm: Sinus Conclusions: - The left ventricular systolic function is hyperdynamic. The visually estimated ejection fraction is >70%. - No obvious valvular pathology seen on this study. Findings Left Ventricle Normal left ventricular cavity size. There is mildly increased left ventricular wall thickness. The left ventricular systolic function is hyperdynamic. The visually estimated ejection fraction is >70%. There is no evidence of regional wall motion abnormalities. Right Ventricle Normal right ventricular cavity size and systolic function. Atria Both atria are normal in size. Aortic Valve There is a normal trileaflet aortic valve. There is mild calcification of the aortic valve. There is no aortic valve stenosis. There is no aortic valve regurgitation. Mitral Valve The mitral valve appears normal. There is trace mitral valve regurgitation. There is no mitral valve stenosis. Pulmonic Valve The pulmonic valve is likely normal. Tricuspid Valve There is trace tricuspid valve regurgitation. Tricuspid regurgitation envelope is inadequate for calculation of right ventricular systolic pressure. Great Vessels The asc aorta and aortic arch are normal in size. Venous The inferior vena cava is mildly dilated and collapses less than 50% with inspiration. Pericardium/Pleural There is no evidence of pericardial effusion. Prior Study Comparison No prior study available for comparison. Recommendations, Care & Conclusions No obvious valvular pathology seen on this study. Measurements 2D Linear Measurements IVSd: 1.01 0.6-0.9/0.6-1.0 cm LVIDd: 5.17 3.9-5.3/4.2-5.9 cm LVIDd Index: 2.65 2.4-3.2/2.2-3.1 cm/m2 LVIDs: 2.32 2.0-3.6 cm LVPWd: 1.23 0.7-1.1 cm LA Diam: 4.20 2.7-3.8/3.0-4.0 cm LAIDs Index: 2.15 1.5-2.3 cm/m2 LV Mass: 279.43 67-162/88-224 g LV Mass Index: 143.30 43-95/49-115 g/m2 LVOT Diam: 2.00 3.0+(-)1.3 cm 2D Systolic Function EF 4C: 74.60 >55% EF 2C: 72.20 >55% EF BiP: 72.00 >55% Mitral Valve E'Lateral: 7.29 E'Medial: 6.53 Aortic Valve AoV Pk Brodie: 1.81 AoV Mn Brodie: 1.23 AoV VTI: 0.40 AoV Pk Grad: 13.00 Aov Mn Grad: 7.00 HARRY Cont.VTI: 2.52 LVOT LVOT Pk Brodie: 1.32 LVOT Mn Brodie: 0.94 LVOT VTI: 0.32 LVOT Pk Grad: 7.00 LVOT Mn Grad: 4.00 LVOT Diam: 2.00 LVOT Area: 3.14 Diastolic Function E'Medial: 6.53 E' Laterial: 7.29 Right Ventricle TAPSE (mm): 23.00 TVS' Brodie: 12.30 Tricuspid Valve RA Press: 15.00 Great Vessels Aorta Sinus of Valsalva: 3.20 2.0-3.5 cm Ao Asc: 3.10 2.1-3.4 cm Ao Arch: 3.10 Pulmonary Valve PV Pk Brodie: 1.15 Peak PV Grad: 5.00 Updated in Other Vendor System with Status of Final Luis Angel Jamison MD electronically signed on 01/03/2025 4:07:01 PM with status of Final
--- NOTE | 2025-01-03 17:11 | PM.DS ---
DS: Providers Provider Date of Service: 01/01/25 Date of admission: 01/01/25 19:02 Date of discharge: 01/03/25 Primary care physician: Juliette Escoto MD Consults: 01/01/25 19:29 Consult to Neurology Routine Consulting Provider: [facility] Reason for consultation: Transient expressive aphasia Attending physician on discharge: Krystal Sánchez DS: Diagnosis Discharge Diagnosis (1) Aphasia: Status: Acute (2) Brain TIA: Status: Acute (3) Hyperdynamic circulation: Status: Acute (4) Hypertensive urgency: Status: Acute (5) HTN (hypertension): Status: Acute (6) Thyroid mass: Status: Acute DS: Summary Hospital Course Hospital Course: 79-year-old female with pertinent history of hypertension, mixed hyperlipidemia, gastroesophageal reflux disease who presents to the emergency department for evaluation of difficulty with speech, admitted with TIA secondary to hypertensive urgency in the setting of hyperdynamic LVEF and acute stressfull event at home. The patient suffered a stressful event at home, after which she reports suffering with difficulty with speech. Referred to ED for CVA evaluation. Stroke code was activated in the ED, at which point the patient's symptoms resolved. Event lasted a total of 40 minutes. No hemiplegia, hemiparesis, ataxia, facial drooping. CT brain, MRI brain negative for acute thrombotic or hemorrhagic features. CVA ruled out. ECHO performed revealing hyperdynamic LVEF >70%, no valvulopathy, thrombus or other features. ECG revealed some bigeminy, but otherwise NSR without Afib or tachyarrhythmia or dysrhythmia. Impression: Hypertensive urgency in the setting of hyperdynamic LVEF (CHFpEF) with subsequent TIA (resolving in 40 mins). ABCD2 score: 3 (<3% risk of CVA within 90 days) - low risk. Nodular right thyroid lobe on imaging: Outpatient follow-up with thyroid ultrasound Status at Discharge Cognitive/behavioral status at discharge: Baseline. A&O x4 Functional status at discharge: independent ambulation Overall status at discharge: patient is back to baseline Time Attestation Total time managing care of this patient today: 45 mintues. Discharge Coordination Time (in mins): 15 Quality: Safe Use of Opioids Does Pt have an Active Cancer Diagnosis on the Problem List?: No Quality: Stroke Does the patient have a stroke diagnosis?: No Physical Exam Exam: Exam: General: A&O x3, oriented to time place person and siutaion, comfortable, no pain Cardiac: S1, S2 auscultated with no S3/4, no MRG . Well perfused. Respiratory: Normal breath sounds auscultated throughout all lung zones, without wheezing, rales. Normal rate. GI/ : No abdominal pain on palpation, no masses or distentions. MSK: Normal ambulation without pain at bony prominences or musculature Neurological: Normal neurological examination on overview, without obvious CN II-XII abnormalities. Vital Signs: Vital Signs: Last Vital Signs Temp 98.7 F 01/03/25 15:42 Pulse 63 01/03/25 15:42 Resp 18 01/03/25 15:42 BP 135/61 01/03/25 15:42 Pulse Ox 95 01/03/25 15:42 O2 Del Method Room Air 01/03/25 15:42 BMI result Body Mass Index 30.6 Neuro: Other: She is alert and awake with normal spontaneity of speech fluency comprehension and affect. She is able to name and repeat and read with comprehension. Face is symmetrical. Visual hernandez are full. Extraocular muscles were intact. There was no nystagmus or gaze deviation. There was no pronator drift. There was no visual was sensory extinction. Deep tendon reflexes are trace to absent with flexor plantars. There was no focal arm or leg weakness. Speech is normal. DS: Data Data Completed and Pending Labs on day of discharge: Laboratory Results - last 24 hr 01/02/25 01/02/25 01/03/25 05:04 18:44 03:34 WBC 5.6 RBC 4.16 L Hgb 12.3 Hct 33.7 L MCV 81.0 MCH 29.6 MCHC 36.5 H RDW 12.9 Plt Count 158 L MPV 10.1 Immature Gran % (Auto) 0.2 Neut % (Auto) 60.8 Lymph % (Auto) 26.6 [place] % (Auto) 9.0 Eos % (Auto) 2.9 Baso % (Auto) 0.5 Lymph # (Auto) 1.5 [place] # (Auto) 0.5 Eos # (Auto) 0.2 Baso # (Auto) 0.0 Abs Immat Gran (auto) 0.01 Absolute Neuts (auto) 3.4 Absolute Nucleated RBC 0.000 Nucleated RBC % (auto) 0.0 Sodium 143 Potassium 3.6 Chloride 106 Carbon Dioxide 29 Anion Gap 12 BUN 16 Creatinine 0.85 Estim Creat Clear Calc 59.4 Estimated GFR > 60 Random Glucose 115 Estimat Average Glucose 123 Hemoglobin A1c % 5.9 Calcium 8.5 Total Bilirubin 0.5 AST 21 ALT 14 Alkaline Phosphatase 52 Total Protein 6.1 L Albumin 3.7 Triglycerides 73 Cholesterol 136 LDL Cholesterol, Calc 82 HDL Cholesterol 40 L Discharge Plan Discharge Anticipated Discharge Date/Time: 01/03/25 17:17 Patient Disposition: Home, Self-Care Discharge Diagnosis: Hypertensive urgency in the setting of hyperdynamic LVEF (CHFpEF) with subsequent TIA (resolving in 40 mins). ABCD2 score: 3 (<3% risk of CVA within 90 days) - low risk. Referrals: Juliette Escoto MD [Primary Care Provider, [facility]] - 1 Week Discharge Medications: New carvedilol [Coreg] 3.125 mg tablet 3.125 mg PO BID Qty: 60 1RF Rx Instructions: must administer with a meal/food Continued gabapentin 400 mg capsule 400 mg PO BEDTIME pantoprazole 20 mg tablet,delayed release (DR/EC) 20 mg PO BEDTIME simvastatin 20 mg tablet 20 mg PO BEDTIME losartan 25 mg tablet 25 mg PO BEDTIME nystatin 100,000 unit/gram powder 1 appl topical BID PRN (Reason: Rash) aspirin 81 mg Tablet 81 mg PO BEDTIME Discontinued hydrochlorothiazide 12.5 mg tablet 12.5 mg PO BEDTIME Discharge Orders: Discharge Order (Routine); Ordered 01/03/25 Ordered By: Krystal Sánchez Diet: Advance to usual diet Activity on Discharge: As tolerated Stand Alone Forms: Patient Portal Discharge page Print Language: Telugu Care Plan Goals: Follow up with PCP within 1-2 weeks of discharge Risk reduction for CVA future risk (optimise statins) Health Concerns: Hyperdynamic LVEF - new diagnosis - follow up outpatient cardiology Thyoid nodule identified on imaging incidentally - follow up outpatient US & FNA if appropriate Plan of Treatment: Hyperdynamic LVEF - new diagnosis - follow up outpatient cardiology Thyoid nodule identified on imaging incidentally - follow up outpatient US & FNA if appropriate Assessment: As above. Back to baseline. STOPPED HCTZ - TRANSITIONED TO CARVEDILOL 3.125MG BID PO FOR CARDIOPROTECTIVE BENEFIT Patient Instructions: Stroke (DC) Discharge Date/Time: 01/03/25 18:01
== END 2025-01-03 18:01 | disposition home or self-care (01) ==
LOC: HO.ED 17:56 → HO.EDOVER 19:23 → HO.IMC 01-03 07:44
PROVIDERS: Physician Assistant Medical; Admitting Provider Student in an Organized Health Care Education/Training Program; Emergency Provider Emergency Medicine; PCP Family Medicine; Visit Provider Hospitalist
DX: I16.0 Hypertensive urgency (principal); G45.9 Transient cerebral ischemic attack, unspecified; R47.01 Aphasia; I11.0 Hypertensive heart disease with heart failure; I50.30 Unspecified diastolic (congestive) heart failure; R47.81 Slurred speech; K21.9 Gastro-esophageal reflux disease without esophagitis; E04.1 Nontoxic single thyroid nodule; R94.31 Abnormal electrocardiogram [ECG] [EKG]; R00.1 Bradycardia, unspecified; Z79.899 Other long term (current) drug therapy
CPT/HCPCS: 36415; 70450; 70496; 70498; 70551; 80048; 80053; 80061; 83036; 83735; 84443; 84484; 85025; 85610; 85730; 92610; 93005; 93306; 96372; 99222; 99285; J1650; Q9957; Q9967

== ENCOUNTER → 2025-01-01 16:29 | Outpatient (BNV) | payer MEDICARE, OTHER, SELFPAY | PROVIDERS: Admitting Provider Student in an Organized Health Care Education/Training Program; Emergency Provider Emergency Medicine; PCP Family Medicine; Visit Provider Internal Medicine | DX: Z13.6 Encounter for screening for cardiovascular disorders (principal) | CPT/HCPCS: 93010 ==

== ENCOUNTER → 2025-01-01 16:29 | Outpatient (BNV) | payer MEDICARE, OTHER, SELFPAY | PROVIDERS: Emergency Provider Emergency Medicine; PCP Family Medicine; Visit Provider Specialist | DX: R47.81 Slurred speech (principal) | CPT/HCPCS: 70450 ==

== ENCOUNTER 2025-01-01 19:02 | Outpatient (BNV) | payer MEDICARE, OTHER, SELFPAY | END 2025-01-02 13:17 | PROVIDERS: Admitting Provider Student in an Organized Health Care Education/Training Program; Emergency Provider Emergency Medicine; PCP Family Medicine; Visit Provider Radiology Diagnostic Radiology | DX: R47.9 Unspecified speech disturbances (principal) | CPT/HCPCS: 70551 ==

== ENCOUNTER 2025-01-01 19:02 | Outpatient (BNV) | payer MEDICARE, OTHER, SELFPAY | END 2025-01-02 08:12 | PROVIDERS: Admitting Provider Student in an Organized Health Care Education/Training Program; Emergency Provider Emergency Medicine; PCP Family Medicine; Visit Provider Internal Medicine | DX: I49.3 Ventricular premature depolarization (principal); I49.1 Atrial premature depolarization | CPT/HCPCS: 93010 ==

== ENCOUNTER 2025-01-01 19:02 | Outpatient (BNV) | payer MEDICARE, OTHER, SELFPAY | END 2025-01-03 12:00 | PROVIDERS: Admitting Provider Student in an Organized Health Care Education/Training Program; Emergency Provider Emergency Medicine; PCP Family Medicine; Visit Provider Internal Medicine | DX: I35.8 Other nonrheumatic aortic valve disorders (principal); I51.89 Other ill-defined heart diseases | CPT/HCPCS: 93306 ==

== ENCOUNTER → 2025-01-01 19:02 | Outpatient (BNV) | payer MEDICARE, OTHER, SELFPAY | PROVIDERS: Admitting Provider Student in an Organized Health Care Education/Training Program; Emergency Provider Emergency Medicine; PCP Family Medicine; Visit Provider Psychiatry & Neurology Neurology | DX: R47.01 Aphasia (principal) | CPT/HCPCS: 99223 ==

== ENCOUNTER → 2025-01-01 19:02 | Outpatient (BNV) | payer MEDICARE, OTHER, SELFPAY | PROVIDERS: Admitting Provider Student in an Organized Health Care Education/Training Program; Emergency Provider Emergency Medicine; PCP Family Medicine; Visit Provider Student in an Organized Health Care Education/Training Program | DX: R47.01 Aphasia (principal) | CPT/HCPCS: 99222 ==

== ENCOUNTER 2025-03-17 10:44 | Outpatient (AMB) | payer MEDICARE, SELFPAY ==
--- NOTE | 2025-03-17 10:54 | A.OFFVIS_ITS ---
Vital Signs 03/17/25 10:55 Height 5 ft 4 in Weight 180 lb BMI 30.9 BP 142/64 H Blood Pressure Location Rt brachial Position Sitting Pulse 78 Pulse Source Pulse Oximeter Pulse Oximetry (%) 96 Oxygen Delivery Method Room Air Intake Visit Reasons: gerd Intake Note: New pt for initial eval of GERD + dysphagia. No prior colo found. CC: Pt denies any GI changes or new sx at this time. Moved to the area within the last 2 years. Currently finishing abx for UTI. Pt confirms that her current PPI seems to remain effective with controlling her sx. Property Utilization Officer Required: No Accompanied by: Self / Same As Patient Allergies Penicillins (PCN) Allergy (Verified 03/17/25 10:55) Unknown Sulfa (Sulfonamide Antibiotics) Allergy (Verified 03/17/25 10:55) Unknown HPI HPI gerd: Details: 79-year-old female with past medical history of hyperlipidemia, GERD, hypertension, TIA is here today for initial consultation. Patient recently moved from [place] [facility] [place], [place] to this area. Patient reports that her daughter lives in [place] and she wanted to be closer. Patient has been followed and seen by GI specialist for several decades. Patient had colonoscopy few years ago. Patient is schedule for endoscopy in March with them. Patient is sent to us by her ENT specialist who did order barium swallow that showed: IMPRESSION: 1. Moderate to severely disordered esophageal peristalsis. 2. Small type I hiatus hernia. 3. Episodic gastroesophageal reflux noted to the level of the aortic arch. 4. Innumerable small round and oval filling defects in the stomach, suggestive of hyperplastic polyps. Recommend correlating with endoscopy. 5. Thickened rugal folds of the stomach suggesting gastritis. 6. Rapid transit of contrast into the colon by 3 minutes, uncertain clinical significance. Normal mucosal appearance of the small bowel. Patient reports that she has been taking pantoprazole for many many years. Patient sees reports that she has been taking it at bedtime. Patient reports occasional epigastric pain and acid reflux, however for the most part her symptoms are well controlled. Patient moves her bowels without any issues. Denies melena, hematochezia, unintentional weight loss or ribbon like stools. Patient denies any dyspepsia, dysphagia or odynophagia PFSH Medical History GERD (gastroesophageal reflux disease) HLD (hyperlipidemia) HTN (hypertension) Social History Household Members: None Housing: House Do you presently have visiting nurse or other home services: No Patient Tobacco Use Status: Tobacco use Unknown e-Cigarette/Vaping Use: Never Used Second Hand Smoke Exposure: No service: No Review of Systems Const Denies weight gain and Denies weight loss ENT Reports no additional complaints, Denies dysphagia and Denies odynophagia Card Reports no additional complaints Resp Reports no additional complaints GI Denies abdominal pain, Denies belching, Denies melena, Denies bloating, Denies change in bowel habits, Denies dysphagia, Denies excessive flatus, Denies dyspepsia, Denies heartburn, Denies diarrhea, Denies loose stools, Denies nausea, Denies odynophagia and Denies vomiting Musc Reports no additional complaints Neuro Reports no additional complaints Psych Reports no additional complaints Endo Reports no additional complaints Physical Exam Vital Signs: Last Vital Signs Pulse 78 03/17/25 10:55 BP 142/64 H 03/17/25 10:55 Pulse Ox 96 03/17/25 10:55 Oxygen Delivery Method Room Air 03/17/25 10:55 BMI result Body Mass Index 30.9 Const General: healthy appearing, no acute distress and well developed Nutritional Appearance: well nourished and obese Orientation/consciousness: patient oriented x3 Resp Effort & Inspection: normal respiratory effort, able to speak in complete sentences, no tracheal deviation and symmetric chest movement Auscultation: clear to auscultation bilaterally Cardio Rate: regular rate GI Inspection: Yes normal to inspection, No distended and Yes obesity Palpation (GI): Soft to palpation, not firm, nontender and No hepatosplenomegaly present Auscultation: normal bowel sounds General: Yes no CVA tenderness Back/Spine/Pelvis Back: no CVA tenderness Skin General skin exam: elasticity normal, turgor normal and dry skin Neuro General: patient oriented x3 Psych Appearance: grossly normal Mental Status: mental status grossly normal Assessment & Plan Assessment & Plan (1) GERD (gastroesophageal reflux disease): Code(s): K21.9 - Gastro-esophageal reflux disease without esophagitis Category: Medical Qualifiers: Esophagitis presence: esophagitis presence not specified Qualified Code(s): K21.9 - Gastro-esophageal reflux disease without esophagitis Plan Upper GI series reviewed with patient and discussed. Patient will take the pantoprazole in the morning instead of at bedtime. Avoid dietary triggers in late night snacking. Staying upright for minimum 3 hours after meals discussed with patient. Patient will get of his records from her endoscopy that she will have in March. Please request all the records from GI from [facility]. Patient will return in 3 months, sooner on as needed basis. She is agreeable to this plan and verbalizes understanding of instructions. She was given the opportunity to ask questions and all questions answered. Thank you for allowing me to participate in her care Coding Level of Care Code New Pt Level 3 (56098) Diagnoses Gastroesophageal reflux disease, unspecified whether esophagitis present K21.9 Esophagitis presence: esophagitis presence not specified Time Spent (min) 40 Comment 30 minutes spent with patient and additional 10 minutes spent reviewing her records
[2025-03-17 10:55] VITALS: BP 142/64; PULSE 78; O2SAT 96; BMI 30.9
== END 2025-03-17 11:39 | disposition home or self-care (01) ==
LOC: HO.HGI 10:45
PROVIDERS: PCP Family Medicine; Visit Provider Nurse Practitioner Family
DX: K21.9 Gastro-esophageal reflux disease without esophagitis (principal)
CPT/HCPCS: 99203

== ENCOUNTER → 2025-03-17 10:44 | Outpatient (BNVA) | payer MEDICARE, SELFPAY | PROVIDERS: PCP Family Medicine; Visit Provider Nurse Practitioner Family | DX: K21.9 Gastro-esophageal reflux disease without esophagitis (principal) | CPT/HCPCS: 99202 ==

== ENCOUNTER 2025-04-10 12:19 | Emergency (ER) | payer MEDICARE, OTHER, SELFPAY ==
--- OUTSIDE RECORDS SUMMARY | 2024-06-13 05:30 | XMS_ITS ---
Author Organization [facility] Address [address] [place] [address] Care Team Providers Care Emergency Service Worker Name Role Phone Juliette Escoto Primary Care Provider UnavailIndira Martínez [facility] [phone] Encounters Encounter Location Date Provider Diagnosis [facility] [address] [place] [address] 06/13/2024 Indira Kenney Plan Of Treatment No Information Progress Notes * MADELAINEUrsulaNolviaOB:[birth year] (79 yo F)Acc No.[id number]:06/13/2024 Progress Notes Patient: Judy PLASCENCIA Provider: Guillermo Kenney DPM :1945 A ge:78 Y S ex:Female Date:06/13/2024 Address:[address], [id number] Pcp:Juliette Escoto Subjective: * Chief Complaints: * * Medical History: Objective: * Vitals: Assessment: Plan: * Treatment: * Images: * The named appointment provid er may or may not be the originator of this progress note, and it is not deemed complete until electronically signed by the appointment provider. Sign off status: Pending * Provider: Guillermo Kenney DPM Date: 0 06/13/2024 Generated for Evie baum/Alethea/Myra on: 06/10/2024 04:24 PM EST
--- NOTE | ~2025-04-10 | XR_ITS ---
EXAMINATION: XR CHEST CLINICAL INFORMATION: chest pain COMPARISON: None available. TECHNIQUE: Frontal view of the chest was obtained. FINDINGS: The lungs are well-expanded and clear acute pneumonic process. Heart size and pulmonary vascularity is normal. There is mild dextroscoliosis dorsal spine. No aggressive lytic or sclerotic process seen. XR/XR chest 1V IMPRESSION: Unremarkable chest examination. Electronically signed by: Eder Oakes MD 04/10/2025 01:28 PM EST
--- NOTE | 2025-04-10 12:21 | ECG_ITS ---
Test Reason : chest pain Blood Pressure : */* mmHG Vent. Rate : 61 BPM Atrial Rate : 61 BPM P-R Int : 186 ms QRS Dur : 102 ms QT Int : 398 ms P-R-T Axes : 90 -28 49 degrees QTcB Int : 400 ms Normal sinus rhythm Moderate voltage criteria for LVH, may be normal variant ( R in aVL , [place] product ) Borderline ECG When compared with ECG of 02-Jan-2025 18:13, Premature ventricular complexes are no longer Present Premature supraventricular complexes are no longer Present Referred By: Generic ED Physician Electronically Signed By: EVY SHAW MD
[2025-04-10 12:44] VITALS: BP 192/76; PULSE 62; RESP 18; TEMP 36.7; O2SAT 98; BMI 32.1
--- NOTE | 2025-04-10 12:49 | ED.CHESTPAIN ---
HPI - Chest Pain General Chief Complaint: Chest Pain Stated Complaint: chest pain Time Seen by Provider: 04/10/25 14:16 Source: patient, RN notes reviewed and old records reviewed Mode of arrival: ambulatory History of Present Illness ED Provider: Gina Jacobo PA-C HPI narrative: 79-year-old female with a past medical history GERD, HLD, HTN, TIA, presenting to the ED complaining of left-sided upper chest pain x 2 days described as dull. Admits symptoms have been improving since onset. Saw PCP 2 days ago and had labs/chest x-ray and was told to come to the ED for further eval. reports some pedal edema 2 days ago, improved at present. Denies fever, chills, cough, SOB, calf tenderness MD complaint: chest pain Related Data Home Medications ?Medication ?Instructions ?Recorded ?Confirmed aspirin 81 mg tablet 81 mg PO BEDTIME 01/01/25 01/01/25 gabapentin 400 mg capsule 400 mg PO BEDTIME 01/01/25 01/01/25 losartan 25 mg tablet 25 mg PO BEDTIME 01/01/25 01/01/25 nystatin 100,000 unit/gram topical 1 appl topical BID PRN Rash 01/01/25 01/01/25 powder pantoprazole 20 mg tablet,delayed 20 mg PO BEDTIME 01/01/25 01/01/25 release simvastatin 20 mg tablet 20 mg PO BEDTIME 01/01/25 01/01/25 Previous Rx's ?Medication ?Instructions ?Recorded carvedilol 3.125 mg tablet (Coreg) 3.125 mg PO BID #60 tabs 01/03/25 furosemide 20 mg tablet (Lasix) 20 mg PO DAILY 5 days #5 tabs 04/10/25 Allergies Allergy/AdvReac Type Severity Reaction Status Date / Time Penicillins (PCN) Allergy Unknown Verified 04/10/25 12:46 Sulfa (Sulfonamide Allergy Unknown Verified 04/10/25 12:46 Antibiotics) Review of Systems Review of Systems: Yes all other systems are reviewed and are negative Constitutional: Constitutional: Reports as per [facility] Past Medical History Attestation statement: The following information was validated with the patient. Source: old records reviewed Medical History GERD (gastroesophageal reflux disease) HLD (hyperlipidemia) HTN (hypertension) Social History Social History Household Members: None Housing: House Do you presently have visiting nurse or other home services: No Patient Tobacco Use Status: Tobacco use Unknown Smoked in Last 30 Days: No e-Cigarette/Vaping Use: Never Used Second Hand Smoke Exposure: No Advance Directives: No Advance Directives Information Provided: Yes service: No Physical Exam Vital Signs: Vital Signs: Last Vital Signs Temp 98.1 F 04/10/25 17:08 Pulse 59 04/10/25 17:08 Resp 16 04/10/25 17:08 BP 193/79 H 04/10/25 17:08 Pulse Ox 96 04/10/25 17:08 O2 Del Method Room Air 04/10/25 17:08 BMI result Body Mass Index 32.1 Const: General: cooperative, healthy appearing and no acute distress Orientation/consciousness: patient oriented x3 Limitations: no limitations HEENT: Head: Yes normal to inspection and Yes atraumatic Ears: hearing grossly normal bilaterally General nose exam: Normal external nose present Face and sinus: Yes normal facial exam Eyes: General: appearance normal, both eyes and all related structures EOM: EOMs intact bilaterally Neck: Neck: Yes normal visual inspection and Yes no meningeal signs Chest: Chest palpation & inspection: normal inspection of the chest, no crepitus and no tenderness Resp: Effort & Inspection: normal respiratory effort and no respiratory distress Auscultation: clear to auscultation bilaterally, no crackles and no wheezes Cardio: Rate: regular rate Heart sounds: S1 normal heart sound present and S2 normal heart sound present GI: Inspection: Yes normal to inspection Palpation (GI): Soft to palpation, nontender, no guarding and not rigid : General: Yes no CVA tenderness Back/Spine/Pelvis: Back: no CVA tenderness Skin: Rashes: no rashes Wounds: no wounds Neuro: General: patient oriented x3, tone normal and no meningeal signs Cranial nerves: Yes CN's II-XII intact bilaterally Gait exam (Neuro): Normal gait present Extrem: Other: 1+ nonpitting bilateral pedal edema General: Yes no calf tenderness Course Course Course Narrative: RmE: [age] year female presents to ED for left-sided chest pain for the past 2 days. Patient will be referred to ED by [facility]. Patient is also states left arm pain. EKG labs x-ray ordered - Initial troponin 15.6 > will obtain repeat. - BNP elevated to 635.2 > no SOB/hypoxia or Significant pedal edema. Asymptomatic in regards to CHF. CXR also without effusions/interstitial edema. XR chest 1V IMPRESSION: Unremarkable chest examination. -1633-- repeat troponin without rise, mi unlikely. > With shared decision-making will initiate patient on 20 mg of p.o. Lasix x5 days with close PCP follow-up for repeat labs/re-evaluation. Patient admits she currently takes baby aspirin daily. Has stress test scheduled and cardiology referral was placed by PCP. Will also refer to our chemical preparer. Results discussed with patient including worrisome signs and symptoms and strict return precautions, and when to return to the emergency department. They verbalized understanding and feel safe for discharge at this time. Medical Decision Making Medical Decision Making [facility] Narrative: 79-year-old female with a past medical history GERD, HLD, HTN, TIA, presenting to the ED complaining of left-sided upper chest pain x 2 days described as dull. on exam hypertensive, NAD, talking in complete sentences, lungs CTA, 1+ nonpitting pedal edema. Concern for ACS vs CHF. low suspicion for dissection, DVT, PE plan: EKG, labs, CXR, re-evaluate Please refer to course for remaining clinical decision making, interpretation of labs/imaging results, and discussions with consultants and/or family members. Differential Diagnosis Differential Diagnoses: The differential diagnosis associated with the presentation includes As above Admission/Observation Consideration of admission/observation: Escalation of care including admission/observation considered Lab Data [facility] Lab Attestation statement: I reviewed the patient's lab results. 04/10/25 13:23 04/10/25 13:23 Labs: Lab Results 04/10/25 04/10/25 Range/Units 13:23 15:27 WBC 6.6 (4.8-10.8) X10*3/uL RBC 4.21 (4.20-5.50) X10*6/uL Hgb 12.4 (12.0-16.0) g/dl Hct 35.4 L (37.0-47.0) % MCV 84.1 (80.0-98.0) fL MCH 29.5 (27.0-33.0) pg MCHC 35.0 (31.0-35.0) g/dl RDW 13.0 (11.0-16.0) % Plt Count 165 (160-400) X10*3/uL MPV 10.5 (9.4-12.3) fL Immature Gran % (Auto) 0.2 (0.0-0.4) % Neut % (Auto) 67.4 (45-73) % Lymph % (Auto) 18.3 L (20-40) % [place] % (Auto) 9.2 (2-11) % Eos % (Auto) 4.1 H (0-4) % Baso % (Auto) 0.8 (0-2) % Lymph # (Auto) 1.2 (1.2-4.9) X10*3/uL [place] # (Auto) 0.6 (0.1-1.2) X10*3/uL Eos # (Auto) 0.3 (0.0-0.4) X10*3/uL Baso # (Auto) 0.1 (0.0-0.2) X10*3/uL Abs Immat Gran (auto) 0.01 (0.00-0.03) X10*3/uL Absolute Neuts (auto) 4.4 (2.0-8.3) x10*3/uL Absolute Nucleated RBC 0.000 (0.0-0.012) X10*3/uL Nucleated RBC % (auto) 0.0 (0.0-0.2) /100WBC PT 12.6 (11.2-13.5) SEC INR 1.0 (0.9-1.1) APTT 31.0 (26.7-34.1) SEC Sodium 143 (135-145) mmol/L Potassium 4.1 (3.3-5.1) mmol/L Chloride 108 (96-108) mmol/L Carbon Dioxide 28 (22-29) mmol/L Anion Gap 11 L (12-20) BUN 17 H (9-16) mg/dL Creatinine 1.00 (0.5-1.4) mg/dL Estim Creat Clear Calc 47.0 Estimated GFR 54 Random Glucose 111 (60-115) mg/dL Calcium 8.8 (8.4-10.2) mg/dL Total Bilirubin 0.4 (0.0-1.0) mg/dL AST 24 (5-31) U/L ALT 16 (0-31) U/L Alkaline Phosphatase 53 (39-117) U/L Troponin I High Sens 15.6 14.5 (<3.5-17.0) ng/L NT-Pro-B Natriuret Pep 635.2 H (<300) pg/mL Total Protein 6.6 (6.5-8.0) g/dL Albumin 4.1 (3.5-5.0) g/dL Urine Color Dark Yellow Urine Appearance Clear Urine pH 5.0 (5.0-9.0) Ur Specific [place] 1.025 (1.005-1.025) Urine Protein Trace (Neg-Trace) mg/dL Urine Glucose (UA) Negative (Negative) mg/dL Urine Ketones Negative (Negative) mg/dL Urine Blood Negative (Negative) Urine Nitrite Negative (Negative) Ur Leukocyte Esterase Small (1+) H (Negative) Urine RBC 0-2 (0-2) /HPF Urine WBC 0-5 (0-5) /HPF Ur Squamous Epith Cells 3-5 (0-2) /HPF Urine Bacteria Trace (None Seen) Hyaline Casts 0-2 (0-2) /LPF Independent Interpretation I performed an independent interpretation of an: EKG ( my interpretation: Normal sinus rhythm rate of 61. PVCs no longer present when compared to prior. No STEMI.) Radiology Impression Discussion of test interpretation with radiology: I have reviewed the radiologist's reading. External Record Review External record reviewed: Inpatient record, Office record, Outpatient record, Prior outpatient labs, Prior outpatient radiology, Primary care record and Outside ED record Tests considered The following testing was considered but not selected: As above Prescription Management I considered prescription management with: Other Chronic Conditions Patient?s care impacted by: Hypertension and Other (TIA) Social Determinants Patient?s care significantly limited by Social Determinants of Health including: Other Social Determinant of Health Discharge Plan Discharge Clinical Impression: Atypical chest pain Patient Disposition: Home, Self-Care Instructions: Chest Pain (DC), Leg Edema (ED) Additional Instructions: your blood work is reassuring. Your BNP is elevated however your chest x-ray does not show fluid overload Lasix is a diuretic, please take daily for the next 5 days as prescribed. You should have close follow up with her PCP for repeat labs in the next 5-7 days and re-evaluation If yourchest pain persists, worsens, you have shortness of breath, swelling in your legs, or fever return to the ED Prescriptions: New furosemide [Lasix] 20 mg tablet 20 mg PO DAILY 5 Days Qty: 5 0RF No Action gabapentin 400 mg capsule 400 mg PO BEDTIME pantoprazole 20 mg tablet,delayed release (DR/EC) 20 mg PO BEDTIME simvastatin 20 mg tablet 20 mg PO BEDTIME losartan 25 mg tablet 25 mg PO BEDTIME nystatin 100,000 unit/gram powder 1 appl topical BID PRN (Reason: Rash) aspirin 81 mg Tablet 81 mg PO BEDTIME carvedilol [Coreg] 3.125 mg tablet 3.125 mg PO BID Qty: 60 1RF Rx Instructions: must administer with a meal/food Referrals: [facility] [Provider Group] - 1 week Juliette Escoto MD [Primary Care Provider, Family Practice] - 2 days Interventions: ED Discharge Assessment Last Done: 04/10/25 17:08 Discharge Date/Time: 04/10/25 17:08 Print Language: Omani
[2025-04-10 13:32] LABS: MANUAL DIFF FLAG NO
[2025-04-10 13:34] LABS: Hematocrit 35.4 % (37.0-47.0); Hemoglobin 12.4 g/dl (12.0-16.0); Imm Gran Abs Auto 0.01 X10*3/uL (0.00-0.03); Imm Gran Pct Auto 0.2 % (0.0-0.4); Lymphocytes Absolute Auto 1.2 X10*3/uL (1.2-4.9); Mean Corpuscular HGB Conc 35.0 g/dl (31.0-35.0); Mean Corpuscular Hemoglobin 29.5 pg (27.0-33.0); Mean Corpuscular Volume 84.1 fL (80.0-98.0); NRBC Abs Auto 0.000 X10*3/uL (0.0-0.012); NRBC Pct Auto 0.0 /100WBC (0.0-0.2); Platelet Count 165 X10*3/uL (160-400); Red Blood Count 4.21 X10*6/uL (4.20-5.50); White Blood Count 6.6 X10*3/uL (4.8-10.8)
[2025-04-10 13:36] LABS: Appearance Urine Clear; Glucose Urine UA Negative (Negative); PH 5.0 (5.0-9.0); Specific Gravity - Urine 1.025 (1.005-1.025); UMIC TRIGGER UACC YES
[2025-04-10 13:45] LABS: INTERNATIONAL NORM RATIO 1.0 (0.9-1.1); Prothrombin Time 12.6 SEC (11.2-13.5)
[2025-04-10 13:48] LABS: Partial Thromboplastin Time 31.0 SEC (26.7-34.1)
[2025-04-10 13:50] LABS: Alanine Aminotransferase 16 U/L (0-31); Albumin Level 4.1 g/dL (3.5-5.0); Alkaline Phosphatase 53 U/L (39-117); Anion Gap 11 (12-20); Aspartate Amino Transferase 24 U/L (5-31); Blood Urea Nitrogen 17 mg/dL (9-16); Calcium 8.8 mg/dL (8.4-10.2); Carbon Dioxide 28 mmol/L (22-29); Chloride 108 mmol/L (96-108); Creatinine Clr Calc Pharmacy 47.0; Estimated Glomerular Filt Rate 54; Potassium 4.1 mmol/L (3.3-5.1); Sodium 143 mmol/L (135-145); Total Protein 6.6 g/dL (6.5-8.0)
[2025-04-10 13:52] LABS: UACC Culture Trigger YES
[2025-04-10 13:57] LABS: NT Pro B Type Natriuretic Pept 635.2 pg/mL (<300); Troponin-I High Sensitivity 15.6 ng/L (<3.5-17.0)
[2025-04-10 15:22] VITALS: BP 178/54; PULSE 63; RESP 19; TEMP 36.8; O2SAT 97
--- NOTE | 2025-04-10 15:56 | PC.NURSE ---
Patient on the phone with family member/friend, laughing constantly. Repeat troponin level drawn, awaiting results.
[2025-04-10 16:01] LABS: Troponin-I High Sensitivity 14.5 ng/L (<3.5-17.0)
--- OUTSIDE RECORDS SUMMARY | 2025-04-10 16:24 | XMS_ITS | Patient Health Record ---
Author Organization [facility] Address [address] [place] [address] Care Team Providers Care Plum Packer Name Role Phone EscotoCristien Primary Care Provider Unavailab Indira Alvarez Unavailable [phone] Reason For Referral No Information Encounters Encounter Location Date Provider Diagnosis [facility] [address] [place] [address] 05/06/2024 Indira Kenney Plan Of Treatment No Information Insurance Providers Payer Name Payer Address Payer Phone Subscriber Number Group Number Insured Name Patient Relationship to Insured Coverage Start Date Coverage End Date Medicare [facility] [address] [place] [address] [id number] Judy Sanchez Self - patient is the insured [place] [employer] [address] [place] [address] [id number] Judy Sanchez Self - patient is the insured
--- OUTSIDE RECORDS SUMMARY | 2025-04-10 16:24 | XMS_ITS ---
Author Name Interface, [id number] lity Address [address] [place] [address] [facility] Oncology matology Address [address] [place] [address] Support Name Relationship Address Phone Jerrica Burkett Child Unknown Unavailable Allergies and Adverse Reactions Medication/Group Name Reaction Severity Date Sulfa (Sulfonamide Antibiotics) Fever 01/15/2024 Penicillins Hives 01/15/2024 Plan Date Type Value 01/07/2025 APPOINTMENT LAB 15 MIN-OV 15 MIN 01/07/2025 APPOINTMENT LAB 15 MIN-OV 15 MIN 01/15/2024 APPOINTMENT LAB 15 MIN-OV 15 MIN 01/15/2024 APPOINTMENT LAB 15 MIN-OV 15 MIN 01/15/2024 LAB_ORDER CBC w/auto diff with reflex 01/15/2024 LAB_ORDER CMP 01/15/2024 LAB_ORDER LDH panel 01/07/2025 LAB_ORDER CBC w/auto diff with reflex 01/07/2025 LAB_ORDER CMP Reason for Visit LAB 15 MIN-OV 15 MIN Encounters Date Name 01/15/2024 Breast cancer, femal e Diagnostic Results Date Type Test Units Lower Limit Upper Limit Result Flag Comments Status Ordered By Specimen Source Lab Address 01/14 CBC w/aut o diff with refle x WBC x10^3/ uL 4.4 10.4 6.84 FINAL Celio Akbar [facility], [address] [place] [address] [id number] 01/14 CBC w/aut o diff with refle x RBC x10^6/ uL 4.2 5.4 4.58 [facility], [address] [place] [address] [id number] 01/14 CBC w/aut o diff with refle x HGB g/dL 12.0 16.0 13.7 FINAL [facility], [address] [facility] [id number] 0 01/14 CBC w/aut o diff with refle x HCT % 37.0 47.0 39.3 FINAL [facility], [address] [facility] [id number] 0 01/14 CBC w/aut o diff with refle x MCV fL 80.0 98.0 85.8 FINAL [facility], [address] [facility] [id number] 0 01/14 CBC w/aut o diff with refle x MCH pg 28.0 32.0 29.9 FINAL [facility], [address] [facility] [id number] 0 01/14 CBC w/aut o diff with refle x MCHC g/dL 30.7 34.7 34.9 High FINAL [facility], [address] [facility] [id number] 0 01/14 CBC w/aut o diff with refle x RDW-S D 37.0 54.0 39.3% FINAL [facility], [address] [facility] [id number] 0 01/14 CBC w/aut o diff with refle x RDW % 11.5 14.5 12.8 FINAL [facility], [address] [facility] [id number] 0 01/14 CBC w/aut o diff with refle x PLT x10^3/ uL 120.0 400.0 180 FINAL [facility], [address] [facility] [id number] 0 01/14 CBC w/aut o diff with refle x MPV fL 6.5 12.0 9.6 FINAL [facility], [address] [facility] [id number] 0 01/14 CBC w/aut o diff with refle x Smear revie w None [facility], [address] [place] [id number] 0 01/14 CBC w/aut o diff with refle x NRBC % /100WB C 0.0 9.0 0.0 [facility], [address] [place] [id number] 0 01/14 CBC w/aut o diff with refle x NRBC, absol jordin, x 10^3/ uL x10^3/ uL 0.0 0.1 0.00 [facility], [address] [place] [id number] 0 01/14 CBC w/aut o diff with refle x Uma % % 40.0 70.0 75.6 High FINAL [facility], [address] [facility] [id number] 0 01/14 CBC w/aut o diff with refle x LY % % 15.0 41.0 17.0 FINAL [facility], [address] [place] [id number] 0 01/14 CBC w/aut o diff with refle x MO % % 2.0 8.0 5.4 [facility], [address] [place] [id number] 0 01/14 CBC w/aut o diff with refle x EO % % 0.0 3.0 1.3 FINAL [facility], [address] [place] [id number] 0 01/14 CBC w/aut o diff with refle x BA % % 0.0 1.0 0.6 [facility], [address] [place] [id number] 0 01/14 CBC w/aut o diff with refle x IG % % 0.0 1.0 0.1 FINAL [facility], [address] [facility] [id number] 0 01/14 CBC w/aut o diff with refle x Uma # (ANC) x10^3/ uL 2.0 8.4 5.17 [facility], [address] [facility] [facility] [id number] 0 01/14 CBC w/aut o diff with refle x LY # x10^3/ uL 0.7 5.1 1.16 [facility], [address] [facility] [id number] 0 01/14 CBC w/aut o diff with refle x MO # x10^3/ uL 0.0 1.6 0.37 [facility], [address] [facility] [facility] [id number] 0 01/14 CBC w/aut o diff with refle x EO # x10^3/ uL 0.0 1.1 0.09 FINAL [facility], [address] [facility] [facility] [id number] 0 01/14 CBC w/aut o diff with refle x BA # x10^3/ uL 0.0 0.2 0.04 FINAL [facility], [address] [facility] [facility] [id number] 0 01/14 CBC w/aut o diff with refle x IG # x10^3/ uL 0.0 0.1 0.01 FINAL [facility], [address] [facility] [id number] 0 01/14 LDH panel LDH U/L 140.0 271.0 192 FINAL [facility], [address] [facility] [facility] [id number] 0 01/14 CMP Bilir ubin, total mg/dL 0.3 1.0 0.6 FINAL [facility], [address] [facility] [id number] 0 01/14 CMP AST/S GOT U/L 13.0 39.0 15 FINAL [facility], [address] [place] [id number] 0 01/14 CMP ALT/S GPT U/L 7.0 52.0 13 FINAL [facility], [address] [place] [id number] 0 01/14 CMP Alkal ine phosp hatas e U/L 34.0 104.0 52 FINAL [facility], [address] [place] [id number] 0 01/14 CMP Gluco se mg/dL 70.0 105.0 171 High FINAL [facility], [address] [place] [id number] 0 01/14 CMP BUN mg/dL 7.0 25.0 21 FINAL [facility], [address] [facility] [id number] 0 01/14 CMP Creat inine mg/dL 0.6 1.3 0.95 FINAL [facility], [address] [place] [id number] 0 01/14 CMP Calci um mg/dL 8.4 10.5 9.0 FINAL [facility], [address] [place] [id number] 0 01/14 CMP Total prote in g/dL 6.3 8.2 7.1 FINAL [facility], [address] [facility] [id number] 0 01/14 CMP Album in g/dL 3.5 5.0 4.1 FINAL [facility], [address] [place] [id number] 0 01/14 CMP Sodiu m mEq/L 135.0 145.0 140 FINAL [facility], [address] [facility] [id number] 0 01/14 CMP Potas sium mEq/L 3.4 5.0 3.7 FINAL [facility], [address] [place] [id number] 0 01/14 CMP Chlor scarlet, mEq/L mEq/L 96.0 107.0 100 FINAL [facility], [address] [facility] [id number] 0 01/14 CMP CO2 salo nt mEq/L 21.0 31.0 34 High FINAL [facility], [address] [facility] [id number] 0 01/14 CMP GFR estim ate mL/min /1.73m 2 57 Low Normal Range:Nor mal renal function >or= 60Moderat charlee decreased 30 - 59Severel y decreased 15 - 29Renal Failure < 15Please note the GFR value should be multiplie d by 1.210 if the patient is -A merican. FINAL [facility], [address] [facility] [id number] 0 Medications Date Name Route Dose Frequency Instructions Start Date End Date Status Fill Status Indication 01/26 [place] 3-DHA-E PA-Fish Oil Oral Delayed Release 60 mg-90 mg-500 mg PO 1.0 capsul e,rodolfo yed releas e(DR/E C) DAILY active 03/27 Pantopr azole (Sodium ) Oral Delayed Release PO 1.0 tablet ,delay ed releas e (DR/EC ) QD active 11/18 Gabapen tin Oral PO 1.0 capsul e daily active 03/27 Coenzym e Q10 Oral PO 1.0 tablet QD active 03/27 Losarta n Oral PO 1.0 tablet QD active 03/27 Choleca lcifero l Oral PO 1.0 capsul e QD active 03/27 Simvast atin Oral PO 1.0 tablet QD active 03/09 Cyanoco balamin Oral PO QD active 03/27 Hydroch lorothi azide Oral PO 1.0 tablet QD active 03/27 Aspirin Oral Delayed Release (Enteri c Coated) PO 1.0 tablet ,delay ed releas e (DR/EC ) QD active 01/26 Biotin Oral PO 1.0 tablet DAILY PRN active 12/23 nystati n 100 UNT/MG Topical Powder topicall y 1.0 applic ation 3 times per day 2022 active Breast cancer, female Problems Diagnosis Status Date of Diagnosis Resolution Date Breast cancer, female Active Vital Signs Date Type Value 01/15/2024 Intravascular Systolic 103 01/15/2024 Intravascular Diastolic 42 01/15/2024 Body Temperature 96.80 01/15/2024 Pain Scale 0.00 01/15/2024 Weight 82.10 01/15/2024 Oxygen Saturation 96.00 01/15/2024 BMI 30.94 01/15/2024 BSA 1.88 01/15/2024 Respiratory Rate 16.00 01/15/2024 Heart Beat 68.00 01/15/2024 Height 162.90 Notes Section * Follow-up <html><head></head><body><div style= text-align:center ><span class= clinicalNoteMacroWysiwyg id= [id number] macroname=&qu ot;PracticeLetterhead spantype= macro title= #PracticeLetterhead ><img src= [id number] ></span>
</div><div style= text-align:left >
</div><div style="text-align:left >Patient Name: <span class= clinicalNoteMacroWysiwyg id="[id number] macroname= PatientName spantype= macro title= #PatientName >JAIME BURKETT</span></div><div style= text-align:left >Patient : <span class= clinicalNoteMacroWysiwyg id= [id number] macroname= PatientDateOfBirth spantype= macro title= #Pa tientDateOfBirth >1945</span></div><div style= text-align:left&quo t;>Patient MRN: <span class= clinicalNoteMacroWysiwyg id= [id number] macroname= PatientMRN spantype= macro title= #PatientMRN &g t;[id number]</span></div><div style= text-align:left >
</div><div style= text-align:left >Primary Oncologist: <span class= clinicalNoteM Heysiwyg id= [id number] macroname= AttendingPhysician span type= macro title= #AttendingPhysician >Jessica Cortez (Medical Oncology, H ematology), Celio Bolden (Hematology/Oncology)</span></div><div style= t ext-align:left >Referring Physician: <span class= clinicalNoteMaAlbertoysiwyg id= [id number] macroname= ReferringPhysician spantype= macro" title= #ReferringPhysician > </span></div><div style= text- align:left >
</div><div style= text-align:left >Date of Service: 01/15/2024

<span class= clinicalNoteSectionVisible id= [id number] internalbreaksection= false" originalname= Chief Complaint recognizeconcepts= true spantype= section suppressempty= false >Chief Complaint</span>
This is scheduled follow up for right breast cancer.

I feel fine

<span class= clinicalNoteSectionVisible id= [id number] i nternalbreaksection= false originalname= HPI recognizeconcepts= true" spantype= section suppressempty= false >HPI</span>
Patientis a 78-year-old woman who had routine screening mammography on 02/21/2018 which showed an asymmetryin the right upper outer breast. She proceeded with diagnostic mammogram ultrasound whichshowed 8 mm right upper quadrant mass 13 cm from the nipple. Biopsy of this lesion on 03/05/2018 revealed invasive ductal carcinoma, moderately differentiated, ER strongly positive greater than 90%, ME greater than 90%, Ki-67 less than 10%, HER-2 negative. MRI of bilateral breasts show no multifocal disease or contralateral disease or abnormal adenopathy. She proceeded with right lumpectomy with sentinel lymph node biopsy on 04/03/[address] Rizvi showing [id number] invasive ductal carcinoma. Patient completed radiation therapy under the care of Dr. Arechiga. She started Arimidex in May 2018, stopped briefly due to concern for side effects however these were felt to be likely secondary to flulike viral illness. She resumed Arimidex in July 2018. She continuesto tolerate them well except for mild arthralgias.
Bilateral breast mammogram on 03/11/2021 showed no mammographic evidence of malignancy in either breast. DEXA scan 03/03/2020 revealed bone mineral densities.

She had mammogram done in March 2022 which showed no concerns. DEXA scan in March 2022 showed stable osteopenia compared to her last DEXA from July 2019.
She underwent bilateral mammogram on 04/03/2023 showed benign posttreatment changes in the right breast. No evidence of malignancy in either breast.
She completed 5 years of anastrozole in the end of May 2023.&nbs p;

<strong><span style= font-size:14px >Interval history:</span></strong>

Patient is here today for her scheduled follow-up. She is clinically stable and reports feeling well overall. She has completed 5 years of AI and is now on observation. Patient denies any fevers, chills, night sweats, weight loss, loss of appetite, new bone pain, headaches, blurry vision, shortness of breath, chest pain, change in bowel or bladder habits, blood in urine or stool, focal neurologic weaknes s.

<span class= clinicalNoteSectionVisible id=& quot;[id number] internalbreaksection= false originalname= Past M edical History recognizeconcepts= true spantype= section suppressempty=& quot;false >Past Medical History</span>
Hypertension, gastroesophageal reflux disease, dyslipidemia, vitamin D deficiency, osteoarthritis, osteopenia - now normal BMD per 02/2020 DEXA.

<span class= clinicalNoteSectionVisible id= [id number] internalbreaksection= false originalname= Surgical History recognizeconcepts= true spantype= section suppressempty= false >Surgical History</span>
<span class= clinicalNoteMacroWysiwyg" id= [id number] macroname= Surgeries parameters= LookBackD ays:All,ListType:Bulleted spantype= macro title= #Surgeries(LookBackDays:All,L istType:Bulleted) > </span><div style= text-align:left ><span style= font-size:14px ><span class= clinicalNoteMacroWysiwyg id= [id number] macroname= OtherProcedures parameters=& quot;Label:Other Procedures,LookBackDays:All spantype= macro title= #OtherProc edures(Label:Other Procedures,LookBackDays:All) ></span></span></div><span style= font-size:14px > </span><div style= text-align:left ><span style= font-size:14px >Lumpectomy and sentinel lymph node biopsy as detailed in HPI.</span>

</div>

<span style= font-size :14px ></span>

<span class= clinicalNoteSectionVisible" id= [id number] internalbreaksection= false originalname= Allergies recognizeconcepts= true spantype= section suppressempty= false >Allergies</span>
<span class= clinicalNoteMacroWysiwyg i d= [id number] macroname= Allergies parameters= ListType:Bulleted spantype= macro title= #Allergies(ListType:Bulleted) ><ul> &l t;li>Penicillins</li> <li>Sulfa (Sulfonamide Antibiotics)</li></ul></s hernandez>

<span class= clinicalNoteSectionVisible id= [id number] internalbreaksection= false originalname= Medications rec ognizeconcepts= true spantype= section suppressempty= false >Medi cations</span>
<span class= clinicalNoteMacroWysiwyg id= [id number] macroname= PatientMedications parameters= ListType:Bulleted&quot ; spantype= macro title= #PatientMedications(ListType:Bulleted) ><ul><li>Biotin Oral 1 tablet PO DAILY PRN</li> <li>Losartan Oral 25 mg tablet 1 tablet PO QD</li> <li>Ecotrin (Aspirin Oral Delayed Release (Enteric Coated)) 81 mg tablet,delayed release (DR/EC) 1 tablet,delayed release (DR/EC) PO QD</li> <li>Fish Oil ([place] 6-SAD-SIP-Fish Oil Oral Delayed Release 60 mg-90 mg-500 mg) 1 capsule,delayed release(DR/EC) PO DAILY</li> <li>Hydrochlorothiazide Oral 12.5 mg tablet 1 tablet PO QD</li> <li>Pantoprazole (Sodium) Oral Delayed Release 20 mg tablet,delayed release (DR/EC) 1 tablet,delayed release (DR/EC) PO QD</li> <li>Co Q-10 (Coenzyme Q10 Oral) 100 mg tablet 1 tablet PO QD</li> <li>Simvastatin Oral 20 mg tablet 1 tablet PO QD</li> <li>Vitamin B-12 (Cyanoc obalamin Oral) 1,000 mcg capsule PO QD</li> <li>Nystatin Topical Powder 100,000 unit/gram powder 1 application topically 3 times per day.</li> <li>Vitamin D3 (Cholecalciferol Oral) 50 mcg (2,000 unit) tablet 1 capsule PO QD</li> <li>Gabapentin Oral 400 mg capsule1 capsule PO daily</li></ul></span>

<span class= clinicalNoteSectionVisible id= [id number] internalbreaksection= false" originalname= Social History recognizeconcepts= true spantype= section suppressempty= false >Social History</span>
<span class=&qu ot;clinicalNoteMacroWysiwyg id= [id number] macroname= PatientSmok ingStatus parameters= Label:Smoking Status spantype= macro title= # PatientSmokingStatus(Label:Smoking Status) >Smoking Status Smoking Tobacco : none found; Smokeless Tobacco : none found; Vaping : none found</span>
<div style= text-align:left >
</div><span style= font-size:14px > </span><div style= text-align:left ><span style= font-size:14px >No significant alcohol or drug use. She smokes half pack a day for 20 years, quit in , , has 1 child. </span>

</div>

<span style= font- size:14px ></span>

<span class= clinicalNoteSectionVisible id= [id number] internalbreaksection= false originalname=& quot;Family History recognizeconcepts= true spantype= section suppressem pty= false >Family History</span>
<span class= clinicalNotOhio State East HospitalcroWysiwyg id= [id number] macroname= FamilyHistory parameters=& quot;ListType:Bulleted spantype= macro title= #FamilyHistory(ListType:Bulleted ) > </span><div style= text-align:left ><span style= font- size:14px >Prostate cancer in brother, multiple family members with cardiac history.</span>

</div>

<span style= font- size:14px ></span>

<span class= clinicalNoteSectionVisible id= [id number] internalbreaksection= false" originalname= Review of Systems recognizeconcepts= true spantype= section suppressempty= false >Review of Systems</span>
<span style= font- size:14px ></span><div style= text-align:left ><div><span style= font- size:14px >See HPI and interval history, ROS is negative 01/15/24&lt ;/span></div>
</div>

<span style= font-size:14px& quot;></span>

<span class= clinicalNoteSectionVisible id=& quot;[id number] internalbreaksection= false originalname= Vital Signs recognizeconcepts= true spantype= section suppressempty= false >Vital Signs</span>
<span class= clinicalNoteMacroWysiwyg id= [id number] macroname= PatientVitalSigns parameters= LookBack Days:0 spantype= macro title= #PatientVitalSigns(LookBackDays:0) >Blood pressure: 103/42, R arm, Wrist, Pulse: 68, Temperature: 96.8 F, Respirations: 16, O2 sat: 96%, AtRest, Room Air, Pain Scale: 0, Height: 162.9 cm, Weight: 82.1 kg, BSA: 1.88, BMI: 30.94 kg/m2</span>
<span class= clinicalNoteMacroWysiwyg id= [id number]" macroname= KarnofskyStatus parameters= Label:Karnofsky Status spantype="macro title= #KarnofskyStatus(Label:Karnofsky Status) ></span>
<span class= clinicalNoteMavaishnavioWysiwyg id= [id number] macron alayna= ECOGStatus parameters= Label:ECOG Status spantype= macro title = #ECOGStatus(Label:ECOG Status) >ECOG Status 1 Symptoms, but ambulatory. Restricted in physically strenuous activity, but ambulatory and able to carry out work of a light or sedentary nature (e.g., light housework, office work). (Date: 11/19/2019)</span>
<strong>Depression Screening: </strong><span class= clinicalNoteMacroWysiwyg" id= [id number] macroname= DepressionStatus parameters= V alueIfNull:Not Available spantype= macro title= #DepressionStatus(ValueIfNull: Not Available) >Was screened; Outcome positive: No; Screening Date: 01/15/2024; Screening Tool: PRIME MD-PHQ2; Total depression score: 0</span>
<span class= clinicalNoteMacroWysiwyg id= [id number] macroname= PatientPainScale parameters= Label:Pain Scale Value,LookBackDays:0 spantype= macro title= #PatientPainScale(Label:Pain Scale Value,LookBackDays:0) >Pain Scale Value 0</span>
<div style= text- align:left ><strong>Pain Management Plan: </strong>

</div>
<span class= clinicalNoteSectionVisible id= [id number] internalbreaksection= false originalname= Physical Exam recognizeconcepts= true spantype= section suppressempty="false >Physical Exam</span>
01/15/24
GENERAL: The patient appears to be in no acute distress.
HEENT: Eyes: no conjunctival pallor or scleral icterus. Nose and Throat: not examined. <br&g t;NECK: Supple, no thyromegaly, no lymphadenopathy.
BREAST: Right: with post lumpectomy changes; no palpable masses, no skin rash or ecchymosis involving breast, no adenopathy
Left: no palpable mass or adenopathy
HEART: S1 and S2 +
LUNGS: CTABL, no crackles or wheezing.
ABDOMEN: soft and nontender, normal bowel sounds
EXTREMITIES: no pedal edema, pulses 2+
NEUROLOGICAL: nofocal deficit.
LYMPH: No palpable cervical, supraclavicular, axillary or inguinal adenopathy

<span class= clinicalNoteSectionVisible id= raeann [id number] internalbreaksection= false originalname= Result Comments&qu ot; recognizeconcepts= true spantype= section suppressempty= false >Result Comments</span>
see below

<span class= clinicalNoteSectionVisible id= [id number] internalbreaksection= false" originalname= Labs recognizeconcepts= true spantype= section smiley ppressempty= false >Labs</span>
<span class= clinicalNoteMacroWysiwyg id= [id number] macroname= RecentLabResultsTable parame ters= OptionalFlowsheetCategory:CBC spantype= macro title= #RecentLabResu ltsTable(OptionalFlowsheetCategory:CBC) ><table border= 1 style= width:100% > <tbody> <tr> <th align= left >LabResults</th> <td>01/15/2024</td> <td>06/26/2023</td> <td>12/23/2022</td> <td>02/18/2022</td> <td>08/18/2021</td> <td>01/26/2021</td> </tr> <tr> <th align= left > CBC</th> <td>
</td> <td>
</td> <td>
</td> <td>
</td> <td>
</td> <td>
</td> </tr> <tr> <td> WBC x 10^3/uL</td> <td>6.84</td> <td>5.82</td> <td>6.59</td> <td>5.77</td> <td>5.90</td> <td>6.16</td> </tr> <tr> <td> RBC x 10^6/uL</td> <td>4.58</td> <td>4.25</td> <td>4.46</td> <td>4.57</td> <td>4.37</td> <td>4.35</td> </tr> <tr> <td> NRBC, absolute, x 10^3/uL</td> <td>0</td> <td>0</td> <td>0</td> <td>0</td> <td>0</td> <td>0</td> </tr> <tr> <td> NRBC % /100 wbc</td> <td>0.0</td> <td>0.0</td> <td>0.0</td> <td>0.0</td> <td>0.0</td> <td>0.0</td> </tr> <tr> <td> HGB g/dL</td> <td>13.7</td> <td>12.4</td> <td>12.9</td> <td>13.3</td> <td>12.7</td> <td>12.9</td> </tr> <tr> <td> HCT %</td> <td>39.3</td> <td>36.1 (L)</td> <td>38.3</td> <td>39.4</td> <td>37.1</td> <td>36.7 (L)</td> </tr> <tr> <td> MCV fL</td> <td>85.8</td><td>84.9</td> <td>85.9</td> <td>86.2</td> <td>84.9</td> <td>84.4</td> </tr> <tr> <td> MCH pg</td> <td>29.9</td> <td>29.2</td> <td>28.9</td> <td>29.1</td> <td>29.1</td> <td>29.7</td> </tr> <tr> <td> MCHC g/dL</td> <td>34.9 (H)</td> <td>34.3</td> <td>33.7</td> <td>33.8</td> <td>34.2</td> <td>35.1 (H)</td> </tr> <tr> <td> RDW %</td> <td>12.8</td> <td>13.1</td> <td>12.8</td> <td>12.9</td> <td>13.1</td> <td>12.8</td> </tr> <tr> <td> RDW-SD fL</td> <td>39.30</td> <td>39.80</td> <td>39.70</td> <td>40.20</td> <td>40.30</td> <td>39</td> </tr> <tr> <td> PLT x 10^3/uL</td> <td>180</td> <td>169</td> <td>183</td> <td>210</td> <td>182</td> <td>175</td> </tr> <tr> <td> MPV fL</td> <td>9.6</td> <td>9.9</td> <td>10.5</td> <td>10.5</td> <td>10.1</td> <td>9.9</td> </tr> <tr> <td> Uma %</td> <td>75.6 (H)</td> <td>69.5</td> <td>71.6 (H)</td> <td>70.3 (H)</td> <td>69.6</td> <td>66.4</td> </tr> <tr> <td> LY %</td> <td>17.0</td> <td>19.1</td> <td>15.8</td> <td>15.8</td> <td>18.5</td> <td>20.1</td> </tr> <tr> <td> MO %</td> <td>5.4</td> <td>7.4</td> <td>9.0 (H)</td> <td>10.1 (H)</td> <td>8.1 (H)</td> <td>8.3 (H)</td> </tr> <tr> <td> EO %</td> <td>1.3</td> <td>2.6</td> <td>2.7</td> <td>2.9</td> <td>2.9</td> <td>4.1 (H)</td> </tr> <tr> <td> BA %</td> <td>0.6</td> <td>0.7</td> <td>0.6</td> <td>0.7</td> <td>0.7</td> <td>0.6</td> </tr> <tr> <td> IG %</td> <td>0.1</td> <td>0.7</td> <td>0.3</td> <td>0.2</td> <td>0.2</td> <td>0.5</td> </tr> <tr> <td> Uma # (ANC) x 10^3/uL</td> <td>5.17</td> <td>4.05</td> <td>4.72</td> <td>4.06</td> <td>4.11</td> <td>4.09</td> </tr> <tr> <td> LY # x 10^3/uL</td> <td>1.16</td> <td& gt;1.11</td> <td>1.04</td> <td>0.91</td> <td>1.09</td> <td>1.24</td> </tr> <tr> <td> MO # x 10^3/uL</td> <td>0.37</td> <td>0.43</td> <td>0.59</td><td>0.58</td> <td>0.48</td> <td>0.51</td> </tr> <tr> <td> EO # x 10^3/uL</td> <td>0.09</td> <td>0.15</td> <td>0.18</td> <td>0.17</td> <td>0.17</td> <td>0.25</td> </tr> <tr> <td> BA # x 10^3/uL</td> <td>0.04</td> <td>0.04</td> <td>0.04</td> <td>0.04</td> <td>0.04</td> <td>0.04</td> </tr> <tr> <td> IG # x 10^3/uL</td> <td>0.01</td> <td>0.04</td> <td>0.02</td> <td>0.01</td> <td>0.01</td> <td>0.03</td> </tr> <tr> <td> Smear review</td> <td>None</td> <td>None</td> <td>None</td> <td>None</td> <td>None</td> <td>None</td> </tr> </tbody></table></span>
<span class= clinicalNoteMacroWysiwyg id= [id number] macroname= RecentLabResultsTable para meters= OptionalFlowsheetCategory:Chemistries spantype= macro title= #Rec entLabResultsTable(OptionalFlowsheetCategory:Chemistries) ><table border= 1 st yle= width:100% > <tbody> <tr> <th align= left >LabResults</th> <td>01/15/2024</td> <td>06/26/2023</td> <td>12/23/2022</td> <td>02/18/2022</td> <td>08/18/2021</td> <td>01/26/2021</td> </tr> <tr> <th align= left > Chemistries</th> <td>
</td> <td>
</td> <td>
</td> <td>
</td> <td>
</td> <td>
</td></tr> <tr> <td> Glucose mg/dL</td> <td>171 (H)</td> <td>154 (H)</td> <td>100</td> <td>100</td> <td>100</td> <td>123 (H)</td> </tr> <tr> <td> BUN mg/dL</td> <td>21</td> <td>17</td> <td>15</td> <td>17</td> <td>16</td> <td>17</td> </tr> <tr> <td> Creatinine mg/dL</td> <td>0.95</td> <td>0.92</td> <td>0.93</td> <td>1.0</td> <td>0.9</td> <td>0.9</td> </tr> <tr> <td> & nbsp; Sodium mmol/L</td> <td>140</td> <td>143</td><td>140</td> <td>142</td> <td>141</td> <td>142</td></tr> <tr> <td> Potassium mmol/L</td> <td>3.7</td> <td>3.6</td> <td>3.6</td> <td>3.9</td> <td>3.8</td> <td>3.5</td> </tr> <tr> <td> &n bsp; Calcium mg/dL</td> <td>9.0</td> <td>8.9</td> <td>9.2</td> <td>9.4</td> <td>9.0</td> <td>9.4</td> </tr> <tr> <td> Chloride, mEq/L</td> <td>100</td> <td>105</td> <td>101</td> <td>101</td> <td>101</td> <td>101</td> </tr> <tr> <td> &nbs p; Albumin g/dL</td> <td>4.1</td> <td>4.0</td> <td>4.2</td> <td>4.1</td> <td>4.0</td> <td>4.0</td> </tr> <tr> <td> Total protein g/dL</td> <td>7.1</td> <td>6.8</td> <td>6.9</td> <td>6.8</td> <td>6.2 (L)</td> <td>6.6</td> </tr> <tr> <td> Bilirubin, total mg/dL</td> <td>0.6</td> <td>0.4</td> <td>0.6</td> <td>0.6</td> <td>0.6</td> <td>0.5</td> </tr> <tr> <td> Alkaline phosphatase U/L</td> <td>52</td> <td>51</td> <td>54</td> <td>49</td> <td>44</td> <td>45</td> </tr> <tr> <td> AST/SGOT U/L</td> <td>15</td> <td>13</td> <td>12 (L)</td> <td>15</td> <td>14</td> <td>12 (L)</td> </tr> <tr> <td> ALT/SGPT U/L</td> <td>13</td> <td>8</td> <td>9</td> <td>9</td> <td>10</td> <td>10</td> </tr> <tr> <td> &nb sp; LDH U/L</td> <td>192</td> <td>186</td> <td>
</td> <td>
</td> <td>
</td> <td>
</td> </tr> <tr> <td> GFR estimate mL/min/1.73m2</td> <td>57 (L)</td> <td>59 (L)</td> <td>59 (L)</td> <td>55 (L)</td> <td>64</td> <td>60 (L)</td> & lt;/tr> <tr> <td> Vitamin D, 25-hydroxy ng/mL</td> <td>
</td> <td>62.73</td> <td>88.22</td> <td>36.25</td> <td>30.20</td> <td>
</td> </tr> <tr> <td> CO2 content mEq/L</td> <td>34(H)</td> <td>31</td> <td>34 (H)</td> <td>34 (H)</td> <td>36 (H)</td> <td>33 (H)</td> </tr> </tbody></table></span>
<span class= clinicalNoteMaRoz id= [id number]" macroname= RecentLabResultsTable parameters= OptionalFlowsheetCategory:Tumor Markers spantype= macro title= #RecentLabResultsTable(OptionalFlowsheetCategory:Tumor Markers) > </span>
<span class= clinicalNote[facility] id= [id number] macroname= RecentLabResultsTable parameters= OptionalFlowsheetCategory:Coags spantype= macro title=&q uot;#RecentLabResultsTable(OptionalFlowsheetCategory:Coags) > & lt;/span>
<span class= clinicalNotOhio [facility] HospitalRoz id= [id number] macroname= RecentLabResultsTable parameters= OptionalFlowsheetCategory:I mmunohematology spantype= macro title= #RecentLabResultsTable(OptionalFlowshee tCategory:Immunohematology) ><table border= 1 style= width:100% > <tbody> <tr> <th align= left >LabResults</th> <td>01/15/2024</td> <td>06/26/2023</td> <td>12/23/2022</td> <td>02/18/2022</td> <td>08/18/2021</td> <td>01/26/2021</td> </tr> <tr> <th align= left > Immunohematology</th> <td>
</td> <td>
</td> <td>
</td> <td>
</td> <td>
</td> <td>
</td> </tr> <tr> &l t;td> ABO/Rh</td> <td>
</td> <td>
</td> <td>
</td> <td>A POS</td> <td>
</td> <td>
</td> </tr> </tbody></table></span>
<span class= clinicalNoteMacroWysiwyg id= [id number] macroname= RecentLabResultsTable parameters= OptionalFlowsheetCategory:Anemia Labs spantype= macro title= #RecentLabResultsTable(OptionalFlowsheetCategory:Anemia Labs) ><table border= 1 style= width:100% > <tbody> <tr> <th align= left >LabResults</th> <td>01/15/2024</td> <td>06/26/2023</td> <td>12/23/2022</td> <td>02/18/2022</td> <td>08/18/2021</td> <td>01/26/2021</td> </tr> <tr> <th align="left > Anemia Labs</th> <td>
</td> <td>
</td> <td>
</td> <td>
</td> <td>
</td> <td>
</td> </tr> <tr> <td> Vitamin B12 pg/mL</td> <td>
</td> <td>
</td> <td>
</td> <td>
</td> <td>
</td> <td>1154 (H)</td> </tr> </tbody></table></span>

<span class= clinicalNoteSectionVisible id= [id number] internalbreaksection= false originalname= Imaging recognizeconcepts= true spantype= section suppressempty= true >Imaging</span>
see interval history.

<span class= clinicalNoteSectionVisible id= [id number] internalbreaksection= false originalname= Pathology recognizeconcepts= true spantype= section suppressempty= true >Pathology</span>
No new path.

<span class= clinicalNoteSectionInvisible id= [id number] internalbreaksection= false originalname= Comorbidity recognizeconcepts= true spantype= section suppressempty= true >Comorbidity</span>

<span class= clinicalNoteSectionVisible id= [id number] internalbreaksection= false originalname= Assessment &Plan recognizeconcepts= true spantype= section suppressempty= false >Assessment & Plan</span>
<div style= text-align:left ><span style= font-size:14px >78-year-old woman with stage I invasive ductal carcinoma, ER ME positive, HER-2 negative, grade 2, status post lumpectomy and sentinel lymph node biopsy and adjuvant radiation. She completed 5 years of Arimidex ( May 2018- end 2023).

She is without any concerns for recurrence.
She will RTC in 1 year for follow up.
Next mammogram/US is due in 03/2024.

# Osteopenia:
On Vitamin D. She does not take calcium supplements. She takes a lot of dairy products.
stable on recent DEXA .

</span>
</div>

<div style= text- align:left ><span style= font-size:14px ></span></div>

<div style= text-align:left ><span class= clinicalNoteSectionVisible id= [id number]" internalbreaksection= false originalname= Orders recognizeconcepts="true spantype= section suppressempty= false >Orders</span>
<span class= clinicalNotOhio [facility] HospitalcroWysiwyg id= [id number] macroname= Orders parameters= LookBackDays:0,OrderType:Imaging,ShowComments:Yes,ListType:Bulleted spantype= macro title= #Orders(LookBackDays:0,OrderType:Imaging,Show Comments:Yes,ListType:Bulleted) > </span>
<span class= clinicalNotOhio State [facility] HospitalvaishnavioWysiwyg id= [id number] macroname= Orders parameters= LookBackDays:0,OrderType:Labs,ShowComments:Yes,ListType:Bulleted spantype= macro title= #Orders(LookBackDays:0,OrderType:Labs,ShowComments:Yes,ListT ype:Bulleted) ><ul> <li>01/15/2024, CBC w/auto diff with reflex, Perform Date: 0 01/07/2025, Perform Location: [facility], Associated problem(s): Breast cancer, female * (C50.411)</li> <li>01/15/2024, CMP, Perform Date: 01/07/2025, Perform Location: [facility], Associated problem(s): Breast cancer, female * (C50.411)</li></ul></span>
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
<span [facility]= clinicalNotMer[facility] HospitaloW[facility]iw[facility] id= [id number] macroname= RxOrders parameters= LookBackDays:0,ShowComments:Yes,ListType:Bulleted spantype= macro title= #RxOrders(LookBackDays:0,ShowComments:Yes,List Type:Bulleted) > </span>

<span clas s= clinicalNoteSectionVisible id= [id number] internalbreaksectio n= false originalname= Diagnosis recognizeconcepts= true spantype=& quot;section suppressempty= false >Diagnosis</span>
<span class = clinicalNotOhio State East HospitalcroWysiwyg id= [id number] macroname= Problems parameters= InitialCap:Yes,ListType:Bulleted,PrincipalOnly:Yes,[id number]:Yes,Windy bosity:Low spantype= macro title= #Problems(InitialCap:Yes,ListType:Bulleted,Principal Only:Yes,[id number]:Yes,Verbosity:Low) ><ul> <li>Breast cancer, female ( ICD-10:C 50.411 ;Malignant neoplasm of upper-outer quadrant of right female breast )</li></ul></span>

<span class= clinicalNoteSectionVisible id= [id number] internalbreaksection= false originalname= . recognizeconcepts= true spantype= section suppressempty= false >.</span&g t;

Celio Bolden MD

cc: <span class= clinicalN [facility] id= [id number] macroname= NoteRecipients spa ntype= macro title= #NoteRecipients >Juliette Escoto MD</span><br&g t;

</div></div>

<div><span class= eSignSignature >Electronically signed by Celio Bolden MD 01/26/2024 11:36 AM EDT</s hernandez></div></body></html>
--- OUTSIDE RECORDS SUMMARY | 2025-04-10 16:24 | XMS_ITS | Encounter Summary ---
Author Organization [facility] Address [address] [place] [address] Phone Care Team Providers Care Yacht Master Name Role Phone Pcp, Unknown Primary Care Provider Juliette Mckeon MD Primary Care Provider [phone] Encounter Details Date Type Department Care Team (Late st Contact Info) Description 11/16/2023 Procedure Pass [address] [place] [address] Social History Tobacco Use Types Packs/Day Years Used Date Smoking Tobacco: Never Smokeless Tobacco: Never Alcohol Use Standard Drinks/Week Comments Yes 0 (1 standard drink = 0.6 oz pur e alcohol) Education Answer Date Recorded Are you interested in more education? Not on everett e 08/16/2023 Are you concerned about learning? Not on file 08/16/2023 No 08/16/2023 No 08/16/2023 Digital Access Answer Date Recorded No 08/16/2023 No 08/16/2023 Reliable internet access at home? Not on file 08/16/2023 Device with a working camera? Not on file Comments No Sex and Gender Information Value Date Recorded Sex Assigned at Not on file Legal Sex Female 3:05 AM EDT Gender Identity Not on file Sexual Orientation Not on file documented as of this encounter Plan of Treatment Upcoming Encounters Date Type Department Care Team (Late st Contact Info) Description 10/08/2024 Procedure Pass [address] [place] [address] 04/17/2025 8:30 AM EST Appointment [facility], Nuclear Medicine - [address] [address] Michaelle Dexter MANAGER OF MERCHANDISING [address] [place] [phone] 04/17/2025 9:30 AM EST Appointment [address] [address] Michaelle Dexter NP [address] [place] [phone] 04/17/2025 10:15 AM EST Appointment Non-Invasive Cardiology [address] [place] [phone] Michaelle Dexter NP [address] [place] [phone] 04/17/2025 11:30 AM EST Appointment [address] [address] Michaelle Dexter NP [address] [place] [phone] 04/28/2025 1:15 PM EST Appointment [address] [address] Iesha Prater PA [address] [place] [phone] documented as of this encounter Visit Diagnoses Not on filedocumented in this encounter Care Teams Yacht Master Relationship Specialty Start Date End Date Pcp, Unknown PCP - General 08/16/23 04/18/24 Juliette Escoto MD [address] [place] [phone] PCP - General Family Medicine 11/22/24 documented as of this encounter Additional Source Comments The information contained in this document represents components of the legal health record. It is not the complete legal health record.[facility]
--- OUTSIDE RECORDS SUMMARY | 2025-04-10 16:24 | XMS_ITS | Encounter Summary ---
Author Organization [facility] Address [address] [place] [address] Phone Care Team Providers Care Chairman And Ceo Name Role Phone Juliette Escoto MD Primary Care Provider [phone] Encounter Details Date Type Department Care Team (Late st Contact Info) Description 04/19/2024 Ancillary Orders Virtual Department [address] [place] [phone] Juliette Escoto MD [address] [place] [phone] [email or web address] Osteopenia, unspecified location (Primary Dx); Breast screening Social History Tobacco Use Types Packs/Day Years [...] st Contact Info) Description 10/08/2024 Procedure Pass [address] [place] [address] 04/17/2025 8:30 AM EST Appointment [address] [address] Michaelle Dexter NP [address] [place] [phone] 04/17/2025 9:30 AM EST Appointment [address] [address] Michaelle Dexter [employer]AND SUR[employer]YING [employer] CHIEF [address] [place] [phone] 04/17/2025 10:15 AM EST Appointment Non-Invasive Cardiology [address] [place] [address] Michaelle Dexter NP [address] [place] [phone] 04/17/2025 11:30 AM EST Appointment [address] [address] Michaelle Dexter NP [address] [place] [phone] 04/28/2025 1:15 PM EST Appointment [address] [place] [address] Iesha Prater PA [address] [place] [phone] documented as of this encounter Visit Diagnoses Diagnosis Osteopenia, unspecified location- Primary Breast screening Breast screening, unspecified documented in this encounter Care Teams Chairman And Ceo Relationship Specialty Start Date End Date Juliette Escoto MD [address] [place] [phone] [email or web address] PCP - General Family Medicine 04/19/24 documented as of this encounter Additional Source Comments The information contained in this document represents components of the legal health record. It is not the complete legal health record.[facility]
--- OUTSIDE RECORDS SUMMARY | 2025-04-10 16:25 | XMS_ITS ---
Author Name Interface, [id number] lity Address [address] [place] [address] [facility] Address [address] [place] [address] Support Name Relationship Address Phone Jerrica Burkett Child Unknown Unavailable Allergies and Adverse Reactions Medication/Group Name Reaction Severity Date Sulfa (Sulfonamide Antibiotics) Fever 01/15/2024 Penicillins Hives 01/15/2024 Plan Date Type Value 01/07/2025 APPOINTMENT LAB 15 MIN-OV 15 MIN 01/07/2025 APPOINTMENT LAB 15 MIN-OV 15 MIN 01/15/2024 APPOINTMENT LAB 15 MIN-OV 15 MIN 01/15/2024 APPOINTMENT LAB 15 MIN-OV 15 MIN 01/11/2024 APPOINTMENT LAB 15 MIN-OV 15 MIN 01/11/2024 APPOINTMENT LAB 15 MIN 01/11/2024 APPOINTMENT LAB 15 MIN-OV 15 MIN 12/25/2023 APPOINTMENT LAB 15 MIN-OV 15 MIN 12/25/2023 APPOINTMENT LAB 15 MIN-OV 15 MIN 06/28/2023 APPOINTMENT LAB 15 MIN-OV 15 MIN 06/28/2023 APPOINTMENT LAB 15 MIN-OV 15 MIN 06/26/2023 APPOINTMENT LAB 15 MIN-OV 15 MIN 06/26/2023 APPOINTMENT LAB 15 MIN-OV 15 MIN 06/26/2023 APPOINTMENT LAB 15 MIN-OV 15 MIN 06/26/2023 APPOINTMENT LAB 15 MIN-OV 15 MIN 12/23/2022 APPOINTMENT LAB 15 MIN-OV 15 MIN 12/23/2022 APPOINTMENT LAB 15 MIN-OV 15 MIN 12/23/2022 LAB_ORDER CMP 12/23/2022 LAB_ORDER CBC w/ auto diff 12/23/2022 LAB_ORDER Urinalysis, reag ent strip without microscopy 12/23/2022 LAB_ORDER Vitamin D monito ring panel 12/23/2022 LAB_ORDER Mammogram, marisa frank, bilateral breast 12/27/2022 LAB_ORDER Mammogram, diagn ostic, bilateral breast 06/26/2023 LAB_ORDER CMP 06/26/2023 LAB_ORDER LDH panel 06/26/2023 LAB_ORDER CBC w/ auto diff 06/26/2023 LAB_ORDER Vitamin D monito ring panel 01/15/2024 LAB_ORDER CBC w/auto diff with reflex 01/15/2024 LAB_ORDER CMP 01/15/2024 LAB_ORDER LDH panel 01/07/2025 LAB_ORDER CBC w/auto diff with reflex 01/07/2025 LAB_ORDER CMP Reason for Visit LAB 15 MIN-OV 15 MIN Encounters Date Name 12/23/2022 Breast cancer, femal e Diagnostic Results Date Type Test Units Lower Limit Upper Limit Result Flag Comments Status Ordered By Specimen Source Lab Address 12/23 Urine cultu re panel Urine cultu re resul t 1 URINE CULTURE + SMEAR Performed By:[facility] [address] [place] [address] [id number] imen Descripti on: UrineSpec ial Requests: NoneGram Stain: 3+ Polymorph onuclear cellsGram Stain: 1+ Gram positive rodsGram Stain: Rare Gram positive cocciCult ure: <10,000 colonies/ ml. Insignifi cant colony count. No further workup.Re port Status: FINAL [id number] FINAL [facility], [address] [place] [address]. [facility] [id number] 0 12/23 Urina lysis , reage nt strip witho ut micro scopy Color (ua) Yellow FINAL [facility], [address] [facility] [id number] 0 12/23 Urina lysis , reage nt strip witho ut micro scopy Appea nivia (ua) Clear FINAL [facility], [address] [facility] [id number] 0 12/23 Urina lysis , reage nt strip witho ut micro scopy Gluco se (ua), qual Neg FINAL [place] [address] [facility] [id number] 0 12/23 Urina lysis , reage nt strip witho ut micro scopy Bilir ubin (ua) Neg FINAL [facility], [address] [place] [id number] 0 12/23 Urina lysis , reage nt strip witho ut micro scopy Urina lysis , aceto ne or keton e ryan s measu remen t Neg FINAL [facility], [address] [place] [id number] 0 12/23 Urina lysis , reage nt strip witho ut micro scopy Speci fic gravi ty (ua) 1.025% FINAL [facility], [address] [place] [id number] 0 12/23 Urina lysis , reage nt strip witho ut micro scopy Blood (ua) Trace FINAL [facility], [address] [place] [id number] 0 12/23 Urina lysis , reage nt strip witho ut micro scopy pH (ua) 7.5% FINAL [facility], [address] [place] [id number] 0 12/23 Urina lysis , reage nt strip witho ut micro scopy Prote in (ua) Neg FINAL [facility], [address] [place] [id number] 0 12/23 Urina lysis , reage nt strip witho ut micro scopy Urobi linog en (ua) 0.2 1.0 0.2% FINAL [facility], [address] [place] [id number] 0 12/23 Urina lysis , reage nt strip witho ut micro scopy Nitri te (ua) Neg FINAL [facility], [address] [place] [id number] 0 12/23 Urina lysis , reage nt strip witho ut micro scopy Leuko cyte dickson ase (ua), qual 1+ FINAL [facility], [address] [place] [id number] 0 12/23 CMP Bilir ubin, total mg/dL 0.3 1.0 0.6 FINAL [facility], [address] [facility] [id number] 0 12/23 CMP AST/S GOT U/L 13.0 39.0 12 Low FINAL [facility], [address] [facility] [id number] 0 12/23 CMP ALT/S GPT U/L 7.0 52.0 9 FINAL [facility], [address] [facility] [id number] 0 12/23 CMP Alkal ine phosp hatas e U/L 34.0 104.0 54 FINAL [facility], [address] [facility] [id number] 0 12/23 CMP Gluco se mg/dL 70.0 105.0 100 FINAL [facility], [address] [facility] [id number] 0 12/23 CMP BUN mg/dL 7.0 25.0 15 FINAL [facility], [address] [facility] [id number] 0 12/23 CMP Creat inine mg/dL 0.6 1.3 0.93 FINAL [facility], [address] [facility] [id number] 0 12/23 CMP Calci um mg/dL 8.4 10.5 9.2 FINAL [facility], [address] [facility] [id number] 0 12/23 CMP Total prote in g/dL 6.3 8.2 6.9 FINAL [facility], [address] [facility] [id number] 0 12/23 CMP Album in g/dL 3.5 5.0 4.2 FINAL [facility], [address] [facility] [id number] 0 12/23 CMP Sodiu m mEq/L 135.0 145.0 140 FINAL [facility], [address] [facility] [id number] 0 12/23 CMP Potas sium mEq/L 3.4 5.0 3.6 FINAL [facility], [address] [facility] [id number] 0 12/23 CMP Chlor scarlet, mEq/L mEq/L 96.0 107.0 101 FINAL [facility], [address] [facility] [id number] 0 12/23 CMP CO2 salo nt mEq/L 21.0 31.0 34 High FINAL [facility], [address] [place] [address]. [facility] [id number] 0 12/23 CMP GFR estim ate mL/min /1.73m 2 59 Low Normal Range:Nor mal renal function >or= 60Moderat charlee decreased 30 - 59Severel y decreased 15 - 29Renal Failure < 15Please note the GFR value should be multiplie d by 1.210 if the patient is -A merican. FINAL [facility], [address] [place] [address]. [facility] [id number] 0 12/23 Urina lysis , routi ne and micro scopi c WBC (ua) WBC/HP F 21-[address] [facility] [id number] 0 12/23 Urina lysis , routi ne and micro scopi c RBC (ua) RBC/HP F 0.0 1.0 3-5 FINAL [facility], [address] [place] [address]. [facility] [id number] 0 12/23 Urina lysis , routi ne and micro scopi c Epith elial cells (ua) 1-[address] [facility] [id number] 0 12/23 Urina lysis , routi ne and micro scopi c Bacte rod (ua) Trace FINAL [facility], [address] [place] [address]. [facility] [id number] 0 12/23 CBC w/ auto diff WBC x10^3/ uL 4.4 10.4 6.59 FINAL [facility], [address] [place] [address]. [facility] [id number] 0 12/23 CBC w/ auto diff RBC x10^6/ uL 4.2 5.4 4.46 FINAL [facility], [address] [facility] [id number] 0 12/23 CBC w/ auto diff HGB g/dL 12.0 16.0 12.9 FINAL [facility], [address] [facility] [id number] 0 12/23 CBC w/ auto diff HCT % 37.0 47.0 38.3 FINAL [facility], [address] [facility] [id number] 0 12/23 CBC w/ auto diff MCV fL 80.0 98.0 85.9 FINAL [facility], [address] [facility] [id number] 0 12/23 CBC w/ auto diff MCH pg 28.0 32.0 28.9 FINAL [facility], [address] [facility] [id number] 0 12/23 CBC w/ auto diff MCHC g/dL 30.7 34.7 33.7 FINAL [facility], [address] [facility] [id number] 0 12/23 CBC w/ auto diff RDW-S D 37.0 54.0 39.7% FINAL [facility], [address] [facility] [id number] 0 12/23 CBC w/ auto diff RDW % 11.5 14.5 12.8 FINAL [facility], [address] [facility] [id number] 0 12/23 CBC w/ auto diff PLT x10^3/ uL 120.0 400.0 183 FINAL [facility], [address] [facility] [id number] 0 12/23 CBC w/ auto diff MPV fL 6.5 12.0 10.5 FINAL [facility], [address] [facility] [id number] 0 12/23 CBC w/ auto diff Smear revie w None FINAL [facility], [address] [facility] [id number] 0 12/23 CBC w/ auto diff NRBC % /100WB C 0.0 9.0 0.0 FINAL Rudy Juve [facility], [address] [facility] [id number] 0 12/23 CBC w/ auto diff NRBC, absol [place], x 10^3/ uL x10^3/ uL 0.0 0.1 0.00 [facility]AL [facility] [place], [address] [facility] [id number] 0 12/23 CBC w/ auto diff Uma % % 40.0 70.0 71.6 High [facility]AL [facility] [place], [address] [facility] [id number] 0 12/23 CBC w/ auto diff LY % % 15.0 41.0 15.8 [facility] [address] [facility] [id number] 0 12/23 CBC w/ auto diff MO % % 2.0 8.0 9.0 High [facility] [place], [address] [facility] [id number] 0 12/23 CBC w/ auto diff EO % % 0.0 3.0 2.7 [facility] [address] [facility] [id number] 0 12/23 CBC w/ auto diff BA % % 0.0 1.0 0.6 [facility] [address] [facility] [id number] 0 12/23 CBC w/ auto diff IG % % 0.0 1.0 0.3 [facility] [address] [facility] [id number] 0 12/23 CBC w/ auto diff Uma # (ANC) x10^3/ uL 2.0 8.4 4.72 FINAL [facility] [place], [address] [facility] [id number] 0 12/23 CBC w/ auto diff LY # x10^3/ uL 0.7 5.1 1.04 FINAL Yavanessaah Sim [place], [address] [facility] [id number] 0 12/23 CBC w/ auto diff MO # x10^3/ uL 0.0 1.6 0.59 FINAL Fredy Rodriguezany, [address] [facility] [id number] 0 12/23 CBC w/ auto diff EO # x10^3/ uL 0.0 1.1 0.18 FINAL Fredy Rodriguezany, [address] [facility] [id number] 0 12/23 CBC w/ auto diff BA # x10^3/ uL 0.0 0.2 0.04 FINAL Fredy Rodriguezany, [address] [facility] [id number] 0 12/23 CBC w/ auto diff IG # x10^3/ uL 0.0 0.1 0.02 FINAL Fredy Rodriguezany, [address] [facility] [id number] 0 12/23 Vitam in D monit oring panel Vitam in D, 25-hy droxy ng/mL 30.0 100.0 88.22 Test performed on [employer] at [facility] [address], [facility] [address] FINAL Fredy [facility] m, [address] [facility] [id number] 0 06/26 CMP ALT/S GPT U/L 7.0 52.0 8 FINAL Jolunda Black-Salome hnson [place], [address] [facility] [id number] 0 06/26 CMP Alkal ine phosp hatas e U/L 34.0 104.0 51 FINAL Jolunda Black-Salome hnson [place], [address] [facility] [id number] 0 06/26 CMP Gluco se mg/dL 70.0 105.0 154 High FINAL Jolunda Black-Salome hnson [place], [address] [facility] [id number] 0 06/26 CMP BUN mg/dL 7.0 25.0 17 FINAL Jolunda Black-Salome hnson [place], [address] [facility] [id number] 0 06/26 CMP Creat inine mg/dL 0.6 1.3 0.92 FINAL [facility] [place], [address] [facility] [id number] 0 06/26 CMP Calci um mg/dL 8.4 10.5 8.9 FINAL Nemesio Che [facility], [address] [facility] [id number] 0 06/26 CMP Total prote in g/dL 6.3 8.2 6.8 FINAL Nemesio TrentSalome [facility], [address] [facility] [id number] 0 06/26 CMP Album in g/dL 3.5 5.0 4.0 FINAL Nemesio Che [facility], [address] [facility] [id number] 0 06/26 CMP Sodiu m mEq/L 135.0 145.0 143 FINAL [facility] [place], [address] [facility] [id number] 0 06/26 CMP Potas sium mEq/L 3.4 5.0 3.6 FINAL [facility] [place], [address] [facility] [id number] 0 06/26 CMP Chlor scarlet, mEq/L mEq/L 96.0 107.0 105 FINAL [facility] [place], [address] [facility] [id number] 0 06/26 CMP CO2 salo nt mEq/L 21.0 31.0 31 FINAL [facility] [place], [address] [facility] [id number] 0 06/26 CMP GFR estim ate mL/min /1.73m 2 59 Low Normal Range:Nor mal renal function >or= 60Moderat charlee decreased 30 - 59Severel y decreased 15 - 29Renal Failure < 15Please note the GFR value should be multiplie d by 1.210 if the patient is -A merican. FINAL Nemesio lin [place], [address] [facility] [id number] 0 06/26 CMP Bilir ubin, total mg/dL 0.3 1.0 0.4 FINAL Nemesio lin [place], [address] [facility] [id number] 0 06/26 CMP AST/S GOT U/L 13.0 39.0 13 FINAL Nemesio lin [place], [address] [facility] [id number] 0 06/26 CBC w/ auto diff WBC x10^3/ uL 4.4 10.4 5.82 FINAL Nemesio lin [place], [address] [facility] [id number] 0 06/26 CBC w/ auto diff RBC x10^6/ uL 4.2 5.4 4.25 FINAL Nemesio lin [place], [address] [facility] [id number] 0 06/26 CBC w/ auto diff HGB g/dL 12.0 16.0 12.4 FINAL Nemesio lin [place], [address] [facility] [id number] 0 06/26 CBC w/ auto diff HCT % 37.0 47.0 36.1 Low FINAL Nemesio lin [place], [address] [facility] [id number] 0 06/26 CBC w/ auto diff MCV fL 80.0 98.0 84.9 FINAL Nemesio lin [place], [address] [facility] [id number] 0 06/26 CBC w/ auto diff MCH pg 28.0 32.0 29.2 FINAL Nemesio lin [place], [address] [facility] [id number] 0 06/26 CBC w/ auto diff MCHC g/dL 30.7 34.7 34.3 FINAL Nemesio lin [place], [address] [facility] [id number] 0 06/26 CBC w/ auto diff RDW-S D 37.0 54.0 39.8% FINAL [facility] [place], [address] [facility] [id number] 0 06/26 CBC w/ auto diff RDW % 11.5 14.5 13.1 FINAL [facility] [place], [address] [facility] [id number] 0 06/26 CBC w/ auto diff PLT x10^3/ uL 120.0 400.0 169 FINAL [facility] [place], [address] [facility] [id number] 0 06/26 CBC w/ auto diff MPV fL 6.5 12.0 9.9 FINAL [facility] [place], [address] [facility] [id number] 0 06/26 CBC w/ auto diff Smear revie w None FINAL [facility] [place], [address] [facility] [id number] 0 06/26 CBC w/ auto diff NRBC % /100WB C 0.0 9.0 0.0 FINAL Nemesio lin [place], [address] [facility] [id number] 0 06/26 CBC w/ auto diff NRBC, absol [place], x 10^3/ uL x10^3/ uL 0.0 0.1 0.00 FINAL [facility] [place], [address] [facility] [id number] 0 06/26 CBC w/ auto diff Uma % % 40.0 70.0 69.5 FINAL Andreeanddevyn lin [place], [address] [facility] [id number] 0 06/26 CBC w/ auto diff LY % % 15.0 41.0 19.1 FINAL Andreeanddevyn lin [place], [address] [facility] [id number] 0 06/26 CBC w/ auto diff MO % % 2.0 8.0 7.4 FINAL Jolunda Black-Salome hnson [place], [address] [facility] [id number] 0 06/26 CBC w/ auto diff EO % % 0.0 3.0 2.6 FINAL Jolunda Black-Sal[facility] hnson [place], [address] [facility] [id number] 0 06/26 CBC w/ auto diff BA % % 0.0 1.0 0.7 FINAL Jolunda Black-Salome hnson [place], [address] [facility] [id number] 0 06/26 CBC w/ auto diff IG % % 0.0 1.0 0.7 FINAL Salomelunda Twan-Salome hnson [place], [address] [facility] [id number] 0 06/26 CBC w/ auto diff Uma # (ANC) x10^3/ uL 2.0 8.4 4.05 FINAL Salomelunddevyn Trent-Salome hnson [place], [address] [facility] [id number] 0 06/26 CBC w/ auto diff LY # x10^3/ uL 0.7 5.1 1.11 FINAL Andreeanddevyn Trent-Salome hnson [place], [address] [facility] [id number] 0 06/26 CBC w/ auto diff MO # x10^3/ uL 0.0 1.6 0.43 FINAL Salomelunda Twan-Salome hnson [place], [address] [facility] [id number] 0 06/26 CBC w/ auto diff EO # x10^3/ uL 0.0 1.1 0.15 FINAL Jolunda Black-Salome hnson [place], [address] [facility] [id number] 0 06/26 CBC w/ auto diff BA # x10^3/ uL 0.0 0.2 0.04 FINAL Jolunda Black-Salome hnson [place], [address] [facility] [id number] 0 06/26 CBC w/ auto diff IG # x10^3/ uL 0.0 0.1 0.04 FINAL [facility] [place], [address] [facility] [id number] 0 06/26 LDH panel LDH U/L 140.0 271.0 186 FINAL [facility] [place], [address] [facility] [id number] 0 06/26 Vitam in D monit oring panel Vitam in D, 25-hy droxy ng/mL 30.0 100.0 62.73 Test performed on [employer] at [facility] [address] [facility], [facility] [address] FINAL [facility], [address] [facility] [id number] 0 01/14 CMP Bilir ubin, total mg/dL 0.3 1.0 0.6 FINAL [facility], [address] [facility] [id number] 0 01/14 CMP AST/S GOT U/L 13.[address] 39[address] [facility], [address] [facility] [id number] 0 01/14 CMP ALT/S GPT U/L 7.[address] 52.[address] [facility], [address] [facility] [id number] 0 01/14 CMP Alkal ine phosp hatas e U/L 34.[address] [facility], [address] [facility] [id number] 0 01/14 CMP Gluco se mg/dL 70.0 105.[address] [facility], [address] [facility] [id number] 0 01/14 CMP BUN mg/dL 7.[address] [facility], [address] [facility] [id number] 0 01/14 CMP Creat inine mg/dL 0.[address] [facility], [address] [facility] [id number] 0 01/14 CMP Calci um mg/dL 8.[address] [facility], [address] [facility] [id number] 0 01/14 CMP Total prote in g/dL 6.[address] [facility], [address] [facility] [id number] 0 01/14 CMP Album in g/dL 3.[address] [facility], [address] [facility] [facility] [id number] 0 01/14 CMP Sodiu m mEq/L 135.[address] [facility], [address] [facility] [id number] 0 01/14 CMP Potas sium mEq/L 3.[address] [facility], [address] [facility] [id number] 0 01/14 CMP Chlor scarlet, mEq/L mEq/L 96.[address] [facility], [address] [facility] [id number] 0 01/14 CMP CO2 salo nt mEq/L 21.0 31.[address] [facility], [address] [facility] [id number] 0 01/14 CMP GFR estim ate mL/min /1.73m 2 57 Low Normal Range:Nor mal renal function >or= 60Moderat charlee decreased 30 - 59Severel y decreased 15 - 29Renal Failure < 15Please note the GFR value should be multiplie d by 1.210 if the patient is -A merican. FINAL [facility], [address] [facility] [id number] 0 01/14 CBC w/aut o diff with refle x WBC x10^3/ uL 4.[address] [facility], [address] [facility] [id number] 0 01/14 CBC w/aut o diff with refle x RBC x10^6/ uL 4.[address] [facility], [address] [facility] [id number] 0 01/14 CBC w/aut o diff with refle x HGB g/dL 12.[address] [facility], [address] [facility] [id number] 0 01/14 CBC w/aut o diff with refle x HCT % 37.[address] [facility], [address] [facility] [id number] 0 01/14 CBC w/aut o diff with refle x MCV fL 80.[address] [facility], [address] [facility] [id number] 0 01/14 CBC w/aut o diff with refle x MCH pg 28.[address] [facility], [address] [facility] [id number] 0 01/14 CBC w/aut o diff with refle x MCHC g/dL 30.7 34.[address] [facility], [address] [facility] [id number] 0 01/14 CBC w/aut o diff with refle x RDW-S D 37.0 54.0 39.3% FINAL [facility], [address] [facility] [id number] 0 01/14 CBC w/aut o diff with refle x RDW % 11.[address] [facility], [address] [place] [id number] 0 01/14 CBC w/aut o diff with refle x PLT x10^3/ uL 120.[address] [facility], [address] [place] [id number] 0 01/14 CBC w/aut o diff with refle x MPV fL 6.[address] [facility], [address] [address] [place] [id number] 0 01/14 CBC w/aut o diff with refle x Smear revie w None FINAL [facility], [address] [place] [id number] 0 01/14 CBC w/aut o diff with refle x NRBC % /100WB C 0.[address] [facility], [address] [place] [id number] 0 01/14 CBC w/aut o diff with refle x NRBC, absol [place], x 10^3/ uL x10^3/ uL 0.[address] [facility], [address] [place] [id number] 0 01/14 CBC w/aut o diff with refle x Uma % % 40.[address] [facility], [address] [place] [id number] 01/14 CBC w/aut o diff with refle x LY % % 15.[address] [facility], [address] [place] [id number] 0 01/14 CBC w/aut o diff with refle x MO % % 2.[address] [facility], [address] [place] [id number] 0 01/14 CBC w/aut o diff with refle x EO % % 0.[address] [facility], [address] [facility] [id number] 0 01/14 CBC w/aut o diff with refle x BA % % 0.[address] [facility], [address] [facility] [id number] 0 01/14 CBC w/aut o diff with refle x IG % % 0.[address] [facility], [address] [facility] [id number] 0 01/14 CBC w/aut o diff with refle x Uma # (ANC) x10^3/ uL 2.[address] [facility], [address] [facility] [id number] 0 01/14 CBC w/aut o diff with refle x LY # x10^3/ uL 0.[address] [facility], [address] [facility] [id number] 0 01/14 CBC w/aut o diff with refle x MO # x10^3/ uL 0.[address] [facility], [address] [facility] [id number] 0 01/14 CBC w/aut o diff with refle x EO # x10^3/ uL 0.[address] [facility], [address] [facility] [id number] 0 01/14 CBC w/aut o diff with refle x BA # x10^3/ uL 0.[address] [facility], [address] [facility] [id number] 0 01/14 CBC w/aut o diff with refle x IG # x10^3/ uL 0.[address] [facility], [address] [facility] [id number] 0 01/14 LDH panel LDH U/L 140.0 271.0 192 FINAL [facility], [address] [facility] [id number] Medications Date Name Route Dose Frequency Instructions Start Date End Date Status Fill Status Indication 01/26 [place] 3-DHA-E PA-Fish Oil Oral Delayed Release 60 mg-90 mg-500 mg PO 1.0 capsul e,rodolfo yed releas e(DR/E C) DAILY active 03/27 Pantopr azole (Sodium ) Oral Delayed Release PO 1.0 tablet ,delay ed releas e (DR/EC ) QD active 03/27 Coenzym e Q10 Oral PO 1.0 tablet QD active 11/18 Gabapen tin Oral PO 1.0 capsul e daily active 03/27 Losarta n Oral PO 1.0 [...] female Active Vital Signs Date Type Value 12/23/2022 Oxygen Saturation 98.00 12/23/2022 Respiratory Rate 18.00 12/23/2022 Heart Beat 60.00 12/23/2022 Body Temperature 97.10 12/23/2022 BSA 1.90 12/23/2022 Pain Scale 0.00 12/23/2022 Weight 84.30 12/23/2022 Height 162.90 12/23/2022 BMI 31.77 12/23/2022 Intravascular Systolic 162 12/23/2022 Intravascular Diastolic 68 06/26/2023 Heart Beat 66.00 06/26/2023 Body Temperature 98.30 06/26/2023 Oxygen Saturation 97.00 06/26/2023 Pain Scale 0.00 06/26/2023 Respiratory Rate 18.00 06/26/2023 BSA 1.89 06/26/2023 BMI 31.43 06/26/2023 Height 162.90 06/26/2023 Weight 83.40 06/26/2023 Intravascular Systolic 128 06/26/2023 Intravascular Diastolic 70 01/15/2024 Intravascular Systolic 103 01/15/2024 Intravascular Diastolic 42 01/15/2024 Body Temperature 96.80 01/15/2024 Pain Scale 0.00 01/15/2024 Weight 82.10 01/15/2024 Respiratory Rate 16.00 01/15/2024 Heart Beat 68.00 01/15/2024 BSA 1.88 01/15/2024 BMI 30.94 01/15/2024 Height 162.90 01/15/2024 Oxygen Saturation 96.00
--- OUTSIDE RECORDS SUMMARY | 2025-04-10 16:25 | XMS_ITS | Encounter Summary ---
Author Organization [facility] Address [address] [place] [id number] Phone Care Team Providers Care Brake Lining Maker Name Role Phone Juliette Escoto MD Primary Care Provider [phone] Encounter Details Date Type Department Care Team (Late st Contact Info) Description 04/19/2024 Ancillary Orders Virtual Department [address] [place] [id number] Juliette Escoto MD [address] [place] [phone] [email or web address] Osteopenia, unspecified location (Primary Dx); Breast screening [...] st Contact Info) Description 10/08/2024 Procedure Pass [address] [place] [address] 04/17/2025 8:30 AM EST Appointment [address] [address] Michaelle Dexter ORNAMENTAL METAL WORKER HELPER [address] [place] [phone] 04/17/2025 9:30 AM EST Appointment [address] [address] Michaelle Dexter ORNAMENTAL METAL WORKER HELPER [address] [place] [phone] 04/17/2025 10:15 AM EST Appointment Non-Invasive Cardiology [address] [place] [address] Michaelle Dexter NP [address] [place] [phone] 04/17/2025 11:30 AM EST Appointment [address] [address] Michaelle Dexter ORNAMENTAL METAL WORKER HELPER [address] [place] [phone] 04/28/2025 1:15 PM EST Appointment [address] [place] [address] Iesha Prater PA [address] [place] [phone] documented as of this encounter Results * BI MAMMOGRAM SCREENING WITH TOMOSYNTHESIS WITH CAD (BILATERAL) (04/19/2024 10:57 AM EST) Anatomical Region Laterality Modality Breast Left, Breast Right, Breast Bilateral Bila teral Mammography 04/19/2024 12:1 2 PM EST Impressions 04/19/2024 12:14 PM EST No mammographic evidence of malignancy in either breast. Annual screening mammography is recommended. BI-RADS 2 BENIGN The patient will be notified of the results and recommendations. Narrative 04/19/2024 12:14 PM EST BI MAMMOGRAM SCREENING WITH TOMOSYNTHESIS WITH CAD (BILATERAL) Additional patient information: Screening. History of right breast cancer status post breast conserving therapy (2018). COMPARISON: Comparison is made with relevant prior imaging. Breast composition: There are scattered areas of fibroglandular density. FINDINGS: Post-treatment changes are present in the right breast. No abnormal masses, suspicious calcifications, or other significant findings are identified mammographically in either breast. There has been no significant interval change. us Juliette Escoto MD IMG MG EXAMS Final Resul t documented in this encounter Visit Diagnoses Diagnosis Breast screening Breast screening, unspecified Osteopenia, unspecified location- Primary Breast screening Breast screening, unspecified documented in this encounter Care Teams Brake Lining Maker Relationship Specialty Start Date End Date Juliette Escoto MD [address] [place] [phone] [email or web address] PCP - General Family Medicine 04/19/24 documented as of this encounter Additional Source Comments The information contained in this document represents components of the legal health record. It is not the complete legal health record.[facility]
--- OUTSIDE RECORDS SUMMARY | 2025-04-10 16:25 | XMS_ITS | Encounter Summary ---
Author Organization [facility] Address [address] [place] [phone] Phone Care Team Providers Care Oven Dumper Name Role Phone Juliette Escoto MD Primary Care Provider [phone] Reason for Referral * MRI/CAT Scan - New Request Specialty Diagnoses / Procedures Referred By Contpawel t Referred To Contact Radiology Diagnoses Other chest pain Procedures NC Myocardial Perfusion Exercise Multiple Michaelle Dexter NP [address] [place] [phone] Phone: tel: fax: Referral ID Status Reason Start Date Expiration Date V isits Requested Visits Authorized [id number] New Request 04/09/2025 1 1 Encounter Details Date Type Department Care Team (Latest Contact Info) Description 04/09/2025 Transcribe Orders Virtual Department [address] [place] [address] Michaelle Dexter NP [address] [place] [phone] Other chest pain (Primary Dx) Social History Tobacco Use Types Packs/Day Years [...] st Contact Info) Description 10/08/2024 Procedure Pass [address] [place] [address] 04/17/2025 8:30 AM EST Appointment [address] [address] Michaelle Dexter NP [address] [place] [phone] 04/17/2025 9:30 AM EST Appointment [address] [address] Michaelle Dexter NP [address] [place] [phone] 04/17/2025 10:15 AM EST Appointment Non-Invasive Cardiology [address] [place] [address] Michaelle Dexter NP [address] [place] [phone] 04/17/2025 11:30 AM EST Appointment [address] [address] Michaelle Dexter NP [address] [place] [phone] 04/28/2025 1:15 PM EST Appointment [address] [place] [address] Iesha Prater PA [address] [place] [phone] Scheduled Orders Name Type Priority Associated Diagnoses Orde r Schedule NC Myocardial Perfusion Exercise Multiple Nuclear Cardiology Routine Other chest pain Expected: 04/09/2025, Expires: 04/09/2026 documented as of this encounter Visit Diagnoses Diagnosis Other chest pain- Primary documented in this encounter Care Teams Oven Dumper Relationship Specialty Start Date End Date Juliette Escoto MD [address] [place] [address] [email or web address] PCP - General Family Medicine 04/19/24 documented as of this encounter Additional Source Comments The information contained in this document represents components of the legal health record. It is not the complete legal health record.[facility]
--- OUTSIDE RECORDS SUMMARY | 2025-04-10 16:25 | XMS_ITS | CCD ---
Author Name Interface, [id number] lity Address [address] [place] [address] [facility] Address [address] [place] [address] Care Team Providers Care Lithographic Stripper Name Role Phone Kimi BRIGGS, Celio Unavailable Unavail able Diego BRIGGS, Jessica Malcolm Unavailable Unavailable Allergies and Adverse Reactions Medication/Group Name Reaction Severity Date Sulfa (Sulfonamide Antibiotics) Fever 01/15/2024 Penicillins Hives 01/15/2024 Care Plan Date Type Value 01/07/2025 APPOINTMENT LAB 15 MIN-OV 15 MIN 01/07/2025 APPOINTMENT LAB 15 MIN-OV 15 MIN 01/07/2025 LAB_ORDER CBC w/auto diff with reflex 01/07/2025 LAB_ORDER CMP Reason for Visit LAB 15 MIN-OV 15 MIN Encounters Date Name 01/07/2025 Breast cancer, femal e Functional Status Date Name/Question Score/Answer 11/19/2019 ECOG performance status - grade 1 1 Medications Date Name Route Dose Frequency Instructions Start Date End Date Status Fill Status Indication 03/27 Coenzym e Q10 Oral PO 1.0 tablet QD active 01/26 [place] 3-DHA-E PA-Fish Oil Oral Delayed Release 60 mg-90 mg-500 mg PO 1.0 capsule ,delaye d release (DR/EC) DAILY active 03/27 Anastro zole Oral PO 1.0 tablet QD inactive 03/27 Simvast atin Oral PO 1.0 tablet QD active 03/27 Aspirin Oral Delayed Release (Enteri c Coated) PO 1.0 tablet, delayed release (DR/EC) QD active 03/27 Losarta n Oral PO 1.0 tablet QD active 11/18 Gabapen tin Oral PO 1.0 capsule daily active 03/27 Choleca lcifero l Oral PO 1.0 capsule QD active 01/26 Biotin Oral PO 1.0 tablet DAILY PRN active 03/27 Hydroch lorothi azide Oral PO 1.0 tablet QD active 03/27 Black Cohosh Oral PO 1.0 capsule QD inactive 03/27 Pantopr azole (Sodium ) Oral Delayed Release PO 1.0 tablet, delayed release (DR/EC) QD active 03/09 [place] balamin Oral PO QD active 03/17 [place] o Oral PO 1.0 CAPSULE BID 02/23 inactive 03/17 Esomepr azole (Magnes ium) Oral Delayed Release Capsule PO 40.0 MG daily 02/23 inactive 03/17 Sumatri ptan Nasal Devol Nasal route 1.0 PUFFS as directed 02/23 inactive 03/17 Miscell aneous Drug PO 1.0 TABLET( S) daily 02/23 inactive 03/17 [place]-3 Fatty Acids Oral PO 1.0 CAPSULE (S) daily 02/23 inactive 03/17 Aspirin Oral PO 1.0 TABLET( S), ENTERIC COATED daily 02/23 inactive 03/17 Estradi ol Oral PO 1.0 TABLET( S) as directed 02/23 inactive 03/17 Atorvas tatin Oral PO 1.0 TABLET( S) daily 02/23 inactive Problems Diagnosis Status Date of Diagnosis Resolution Date Breast cancer, female Active Procedures Date Category Name Instructions Status 01/14/2025 Physician Order RTC DOPE HEATER/PA Ordered Social History Date Name Value 06/27/2022 Sex Female Gender Identity Eptusp-uo-axfm t ranssexual
--- OUTSIDE RECORDS SUMMARY | 2025-04-10 16:25 | XMS_ITS | Clinical Summary ---
Author Organization [facility] Address [address] [place] [phone] Phone Care Team Providers Care City Letter Carrier Name Role Phone Paula Escoto MD Primary Care Provider [phone] Allergies Active Allergy Reactions Criticality Noted Date Comments Penicillins 08/16/2023 Sulfa (Sulfonamide Antibiotics) 07/28 Medications gabapentin (NEURONTIN) 400 MG capsule Take 400 mg by mouth nightly at bedtime. 06/25/2023 Active hydroCHLOROthia zide (MICROZIDE) 12.5 mg capsule 05/23/2023 Act dionte losartan (COZAAR) 25 MG tablet 05/23/2023 Active pantoprazole (PROTONIX) 20 MG tablet 05/23/2023 Active simvastatin (ZOCOR) 20 MG tablet 05/23/2023 Active Active Problems No known active problems Encounters Date Type Department Care Team Description 04/09/2025 Transcribe Orders Virtual Department [address] [place] [id number] Michaelle Dexter NP Other chest pain (Primary Dx) from Last 3 Months Social History Tobacco Use Types Packs/Day Years Used Date Smoking Tobacco: Never Smokeless Tobacco: Never Tobacco Cessation:Counseling Given: Not Answered Alcohol Use Standard Drinks/Week Comments Yes 0 [...] on file Sexual Orientation Not on file Last Filed Vital Signs Vital Sign Reading Time Taken Comments Blood Pressure 134/80 08/16/2023 11:51 AM EDT Pulse 64 08/16/2023 11:51 AM EDT Temperature 37 C (98.6 F) 08/16/2023 11:51 AM EDT Respiratory Rate 16 08/16/2023 11:51 AM EDT Oxygen Saturation 97% 08/16/2023 11:51 AM EDT Inhaled Oxygen Concentration - - Weight - - Height - - Body Mass Index - - Plan of Treatment Upcoming Encounters Date Type Department Care Team (Late st Contact Info) Description 10/08/2024 Procedure Pass [facility] - [address] [place] [address] 04/17/2025 8:30 AM EST Appointment [address] [address] Michaelle Dexter NP [address] [place] [phone] 04/17/2025 9:30 AM EST Appointment [address] [address] Michaelle Dexter NP [address] [place] [phone] 04/17/2025 10:15 AM EST Appointment Non-Invasive Cardiology [address] [place] [address] Michaelle Dexter NP [address] [place] [phone] 04/17/2025 11:30 AM EST Appointment [address] [place] [address] Michaelle Dexter NP [address] [place] [phone] 04/28/2025 1:15 PM EST Appointment [facility] - [address] [place] [address] Iesha Prater PA [address] [place] [phone] Health Maintenance Due Date Last Done Comments Adult Td,Tdap Booster 1945 CREATININE LEVEL 1946 LIPID PANEL 1946 POTASSIUM LEVEL 1946 DEPRESSION SCREENING 1958 HEPATITIS C SCREENING 1964 PNEUMOCOCCAL VACCINES (50+ y ears) (1 of 1 - PCV) 1996 ZOSTER VACCINES (1 of 2) 1996 RSV VACCINE (1 - 1-dose 75+ series) 2021 INFLUENZA VACCINE (#1) 2024 COVID-19 VACCINE ( - 2024-2 6 season) 2025 SMOKING STATUS SCREENING (On ce After 26 Yrs) Completed 04/19/2024 OSTEOPOROSIS SCREENING INITI AL (ONE-TIME) Completed 10/10/2024 HEPATITIS A VACCINES Aged Out No long er eligible based on patient's age to complete this topic HIB VACCINES Aged Out No longer eligi ble based on patient's age to complete this topic IPV VACCINES Aged Out No longer eligi ble based on patient's age to complete this topic MENINGOCOCCAL VACCINES (ACWY) Aged Out No longer eligible based on patient's age to complete this topic MENINGOCOCCAL VACCINES (B) Aged Out N o longer eligible based on patient's age to complete this topic Medical Devices Not on file Procedures Procedure Name Priority Date/Time Associated Diagnosis Comments BD DXA AXIAL (SPINE) WITH HIP Routine 10/10/2024 1:26 PM EDT Osteopenia, unspecified location Other specified disorders of bone density and structure, unspecified site from Last 3 Months or Most Recently Relevant to Health Maintenance Results * BD DXA AXIAL (SPINE) WITH HIP (10/10/2024 1:26 PM EDT) Anatomical Region Laterality Modality Bone Density Bone Density 10/10/2024 1:20 PM EDT Impressions 10/15/2024 10:00 AM EDT Interpretation: Osteopenia. Narrative 10/15/2024 10:00 AM EDT Referred By: PAULA ESCOTO Indications: Osteopenia Scanner: [employer] with serial# of [id number] located at [facility] Bone Density Scan (DXA) 10/10/24 Details of prior DXA scans are available by clicking View Full Report BMD T- Z- Skeletal Site gm/cm2 score score BMD Change Since Prior Scan ------ ----- ----- PA Spine (L1-L4) 1.096 0.40 3.00 N/A Total Hip (Left) 0.846 -0.80 1.20 N/A Femoral Neck (Left) 0.703 -1.30 0.90 N/A Total Hip (Right) 0.821 -1.00 1.00 N/A Femoral Neck (Right) 0.729 -1.10 1.10 N/A ------ ----- ----- * Denotes significant change when >= 0.022 g/cm2 for the spine, 0.027 g/cm2 for the total hip, 0.029 g/cm2 for the femoral neck. Interpretation: Osteopenia. Technical Quality: Imaging of all sites was of adequate quality. FRAX: Based on FRAX(r) 3.6 ([place] White female), this patient's likelihood of hip fracture is 1.1% and major osteoporotic fracture is 3.8% over the next 10 years. The patient reported no risks of fracture. Reviewed By: Delia Prado MD on 10/15/2024 10:00:08 Additional Information: -World Health Organization criteria classify adults based on lowest T-score at PA spine, hip or forearm: Normal (T-score >= -1.0), Osteopenia (T-score between -1 and -2.5), or Osteoporosis (T-score <= -2.5). At [facility], T-scores are compared to peak bone density of a young white gender matched reference population. - For premenopausal women and men under the age of 50, Z-scores (comparison to age, gender, and ethnicity matched reference population) are used: Above expected range for age (Z-score >= 2.0), Within expected range of age (Z-score 1.9 to -1.9), or Below expected range for age (Z-score <= -2.0). - The Bone Health and Osteoporosis Foundation recommends that treatment be considered in men aged more than 50 years and in postmenopausal women with ANY of the following: Prior hip or vertebral fractures; T-score of <= -2.5 at the PA spine or hip; or 10 year fracture probability by FRAX of >= 3% for the hip or >= 20% for major osteoporotic fracture. - The FRAX algorithm (https://www.gualberto.ac.uk/FRAX/tool.aspx) is designed to predict 10-year fracture risk in treatment-naive adults between the ages of 40 and 90. It is not intended to be used in those receiving pharmacologic osteoporosis treatment. - The TBS is derived from the texture of the DXA spine image and has been shown to be related to bone microarchitecture and fracture risk. This data provides information independent of BMD value. It adds to fracture risk assessment with a FRAX adjusted for TBS score. If your patient had a TBS and qualified for a FRAX score, the reported FRAX score has been adjusted for TBS. TBS Score Interpretation 1.350 and greater Normal bone microarchitecture 1.200 to 1.350 Partially degraded bone microarchitecture 1.200 and less Degraded bone microarchitecture - Including race/ethnicity in the generation of T- or Z-scores or in the FRAX calculation is complicated, and currently undergoing active review to ensure that we can give patients the best information on their risk of fracture. - Some prior studies may not be compatible with our comparison software. - Click on View Full Report to see subsequent pages with images and prior bone density results. Procedure Note Delia Prado MD - 10/15/2024 Referred By: PAULA ESCOTO Indications: Osteopenia Scanner: [employer] with serial# of [id number] located at [facility] Bone Density Scan (DXA) 10/10/24 Details of prior DXA scans are available by clicking View Full Report BMD T- Z- Skeletal Site gm/cm2 score score BMD Change Since Prior Scan ------ ----- PA Spine (L1-L4) 1.096 0.40 3.00 N/A Total Hip (Left) 0.846 -0.80 1.20 N/A Femoral Neck (Left) 0.703 -1.30 0.90 N/A Total Hip (Right) 0.821 -1.00 1.00 N/A Femoral Neck (Right) 0.729 -1.10 1.10 N/A ------ ----- * Denotes significant change when >= 0.022 g/cm2 for the spine, 0.027g/cm2 for the total hip, 0.029 g/cm2 for the femoral neck. Interpretation: Osteopenia. Technical Quality: Imaging of all sites was of adequate quality. FRAX: Based on FRAX(r) 3.6 ([place] White female), this patient's likelihoodof hip fracture is 1.1% and major osteoporotic fracture is 3.8% over the next 10 years. The patient reported no risks of fracture. Reviewed By: Delia Prado MD on 10/15/2024 10:00:08 Additional Information: -World Health Organization criteria classify adults based on lowestT-score at PA spine, hip or forearm: Normal (T-score >= -1.0), Osteopenia (T-score between -1 and -2.5), or Osteoporosis (T-score <= -2.5). At [facility], T-scores are compared to peak bone density of a young white gender matched reference population. - For premenopausal women and men under the age of 50, Z-scores(comparison to age, gender, and ethnicity matched reference population) are used:Above expected range for age (Z-score >= 2.0), Within expected range of age (Z-score 1.9 to -1.9), or Below expected range for age (Z-score <= -2.0). - The Bone Health and Osteoporosis Foundation recommends that treatment be considered in men aged more than 50 years and in postmenopausal women with ANY of the following: Prior hip or vertebral fractures; T-score of <= -2.5 at the PA spine or hip; or 10 year fracture probability by FRAX of >= 3%for the hip or >= 20% for major osteoporotic fracture. - The FRAX algorithm (https://www.gualberto.ac.uk/FRAX/tool.aspx) is designed to predict 10-year fracture risk in treatment-naive adultsbetween the ages of 40 and 90. It is not intended to be used in those receiving pharmacologic osteoporosis treatment. - The TBS is derived from the texture of the DXA spine image and has been shown to be related to bone microarchitecture and fracture risk. This data provides information independent of BMD value. It adds to fracture risk assessment with a FRAX adjusted for TBS score. If your patient had a TBSand qualified for a FRAX score, the reported FRAX score has been adjusted for TBS. TBS Score Interpretation 1.350 and greater Normal bone microarchitecture 1.200 to 1.350 Partially degraded bone microarchitecture 1.200 and less Degraded bone microarchitecture - Including race/ethnicity in the generation of T- or Z-scores or in the FRAX calculation is complicated, and currently undergoing active review to ensure that we can give patients the best information on their risk of fracture. - Some prior studies may not be compatible with our comparison software. - Click on View Full Report to see subsequent pages with images andprior bone density results. IMPRESSION: Interpretation: Osteopenia. us Paula Escoto MD [facility] BD BONE DENSITY DEXA Fi nal Result from Last 3 Months or Most Recently Relevant to Health Maintenance Insurance [facility] MEDICARE PART A & B [facility] MEDICARE PART A & B [facility] MEDIC[facility] PART A & B [employer] MEDICARE PART A & B [place] [employer] MED[facility]ARE PART A & B [facility] MEDICARE PART A & B Care Teams City Letter Carrier Relationship Specialty Start Date End Date Paula Escoto MD [address] [place] [address] [email or web address] PCP - General Family Medicine 04/19/24 Additional Source Comments The information contained in this document represents components of the legal health record. It is not the complete legal health record.[facility]
--- OUTSIDE RECORDS SUMMARY | 2025-04-10 16:25 | XMS_ITS ---
Author Name Interface, [id number] lity Address [address] [place] [address] [facility] Address [address] [place] [address] Support Name Relationship Address Phone Jerrica Burkett [...] APPOINTMENT LAB 15 MIN-OV 15 MIN 06/26/2023 LAB_ORDER CMP 06/26/2023 LAB_ORDER LDH panel 06/26/2023 LAB_ORDER CBC w/ auto diff 06/26/2023 LAB_ORDER Vitamin D monito ring panel 01/15/2024 LAB_ORDER CBC w/auto diff with reflex 01/15/2024 LAB_ORDER CMP 01/15/2024 LAB_ORDER LDH panel 01/07/2025 LAB_ORDER CBC w/auto diff with reflex 01/07/2025 LAB_ORDER CMP Reason for Visit LAB 15 MIN-OV 15 MIN Encounters Date Name 06/26/2023 Breast cancer, femal e Diagnostic Results Date Type Test Units Lower Limit Upper Limit Result Flag Comments Status Ordered By Specimen Source Lab Address 06/26 CMP ALT/S GPT U/L 7.0 52.0 8 FINAL Nem[facility] lin [place], [address] [facility] [id number] 0 06/26 CMP Alkal ine phosp hatas e U/L 34.0 104.0 51 FINAL [facility] lin [place], [address] [facility] [id number] 0 06/26 CMP Gluco se mg/dL 70.0 105.0 154 High FINAL Nem[facility]io lin [place], [address] [facility] [id number] 0 06/26 CMP BUN mg/dL 7.0 25.0 17 FINAL [facility] lin [place], [address] [facility] [id number] 0 06/26 CMP Creat inine mg/dL 0.6 1.3 0.92 FINAL [facility] lin [place], [address] [facility] [id number] 0 06/26 CMP Calci um mg/dL 8.4 10.5 8.9 FINAL [facility] lin [place], [address] [facility] [id number] 0 06/26 CMP Total prote in g/dL 6.3 8.2 6.8 FINAL [facility] lin [place], [address] [facility] [id number] 0 06/26 CMP Album in g/dL 3.5 5.0 4.0 FINAL [facility] lin [place], [address] [facility] [id number] 0 06/26 CMP Sodiu m mEq/L 135.0 145.0 143 FINAL [facility], [address] [facility] [id number] 0 06/26 CMP Potas sium mEq/L 3.4 5.0 3.6 FINAL [facility], [address] [facility] [id number] 0 06/26 CMP Chlor scarlet, mEq/L mEq/L 96.0 107.0 105 FINAL Nemesio TrentSalome [facility], [address] [facility] [id number] 0 06/26 CMP CO2 salo nt mEq/L 21.0 31.0 31 FINAL [facility], [address] [facility] [id number] 0 06/26 CMP GFR estim ate mL/min /1.73m 2 59 Low Normal Range:Nor mal renal function >or= 60Moderat charlee decreased 30 - 59Severel y decreased 15 - 29Renal Failure < 15Please note the GFR value should be multiplie d by 1.210 if the patient is -A merican. FINAL Salomerai [facility]Salome [facility], [address] [facility] [id number] 0 06/26 CMP Bilir ubin, total mg/dL 0.3 1.0 0.4 FINAL [facility]omerai [facility]Sal[facility], [address] [facility] [id number] 0 06/26 CMP AST/S GOT U/L 13.0 39.0 13 FINAL [facility], [address] [facility] [id number] 0 06/26 LDH panel LDH U/L 140.0 271.0 186 FINAL [facility], [address] [facility] [id number] 0 06/26 CBC w/ auto diff WBC x10^3/ uL 4.4 10.4 5.82 FINAL [facility], [address] [facility] [id number] 0 06/26 CBC w/ auto diff RBC x10^6/ uL 4.2 5.4 4.25 FINAL [facility], [address] [facility] [id number] 0 06/26 CBC w/ auto diff HGB g/dL 12.0 16.0 12.4 FINAL [facility], [address] [facility] [id number] 0 06/26 CBC w/ auto diff HCT % 37.0 47.0 36.1 Low FINAL [facility], [address] [facility] [id number] 0 06/26 CBC w/ auto diff MCV fL 80.0 98.0 84.9 FINAL [facility], [address] [facility] [id number] 0 06/26 CBC w/ auto diff MCH pg 28.0 32.0 29.2 FINAL [facility], [address] [facility] [id number] 0 06/26 CBC w/ auto diff MCHC g/dL 30.7 34.7 34.3 FINAL [facility] lin [place], [address] [facility] [id number] 0 06/26 CBC w/ auto diff RDW-S D 37.0 54.0 39.8% FINAL [facility] lin [place], [address] [facility] [id number] 0 06/26 CBC w/ auto diff RDW % 11.5 14.5 13.1 FINAL [facility] [place], [address] [facility] [id number] 0 06/26 CBC w/ auto diff PLT x10^3/ uL 120.0 400.0 169 FINAL [facility] lin [place], [address] [facility] [id number] 0 06/26 CBC w/ auto diff MPV fL 6.5 12.0 9.9 FINAL Jolunda Black-Salome hnson [place], [address] [facility] [id number] 0 06/26 CBC w/ auto diff Smear revie w None FINAL Andreeanddevyn davison Gary, [address] [facility] [id number] 0 06/26 CBC w/ auto diff NRBC % /100WB C 0.0 9.0 0.0 FINAL Andreeanda Twan-Salome davison [place], [address] [facility] [id number] 0 06/26 CBC w/ auto diff NRBC, absol [place], x 10^3/ uL x10^3/ uL 0.0 0.1 0.00 FINAL Andreeanddevyn lin [place], [address] [facility] [id number] 0 06/26 CBC w/ auto diff Uma % % 40.0 70.0 69.5 FINAL Andreeanda Twan-Salome lin [place], [address] [facility] [id number] 0 06/26 CBC w/ auto diff LY % % 15.0 41.0 19.1 FINAL Andreeanda Twan-Salome lin [place], [address] [facility] [id number] 0 06/26 CBC w/ auto diff MO % % 2.0 8.0 7.4 FINAL Jolunda Chinedu lin [place], [address] [facility] [id number] 0 06/26 CBC w/ auto diff EO % % 0.0 3.0 2.6 FINAL Jolunda Twan-Salome hnson [place], [address] [facility] [id number] 0 06/26 CBC w/ auto diff BA % % 0.0 1.0 0.7 FINAL Jolunda Twan-Salome davison [place], [address] [facility] [id number] 0 06/26 CBC w/ auto diff IG % % 0.0 1.0 0.7 FINAL Jolunda Black-Salome hnson [place], [address] [facility] [id number] 0 06/26 CBC w/ auto diff Uma # (ANC) x10^3/ uL 2.0 8.4 4.05 FINAL [facility] [place], [address] [facility] [id number] 0 06/26 CBC w/ auto diff LY # x10^3/ uL 0.7 5.1 1.11 FINAL [facility] lin [place], [address] [facility] [id number] 0 06/26 CBC w/ auto diff MO # x10^3/ uL 0.0 1.6 0.43 FINAL [facility] [place], [address] [facility] [id number] 0 06/26 CBC w/ auto diff EO # x10^3/ uL 0.0 1.1 0.15 FINAL [facility] lin [place], [address] [facility] [id number] 0 06/26 CBC w/ auto diff BA # x10^3/ uL 0.0 0.2 0.04 FINAL [facility] lin [place], [address] [facility] [facility] [id number] 0 06/26 CBC w/ auto diff IG # x10^3/ uL 0.0 0.1 0.04 FINAL [facility] lin [place], [address] [facility] [facility] [id number] 0 06/26 Vitam in D monit oring panel Vitam in D, 25-hy droxy ng/mL 30.0 100.0 62.73 Test performed on [employer] at [facility] [address] [facility], [place] [address] FINAL Nemes[facility] lin [facility], [address] [facility] [id number] 0 01/14 CBC w/aut o diff with refle x WBC x10^3/ uL 4.4 10.4 6.84 FINAL Celio Akbar [facility], [address] [facility] [id number] 0 01/14 CBC w/aut o diff with refle x RBC x10^6/ uL 4.[address] [facility], [address] [facility] [id number] 0 01/14 CBC w/aut o diff with refle x HGB g/dL 12.[address] [facility], [address] [facility] [id number] 0 01/14 CBC w/aut o diff with refle x HCT % 37.[address] [facility], [address] [facility] [id number] 0 01/14 CBC w/aut o diff with refle x MCV fL 80.[address] [facility], [address] [facility] [id number] 0 01/14 CBC w/aut o diff with refle x MCH pg 28.[address] [facility], [address] [facility] [id number] 0 01/14 CBC w/aut o diff with refle x MCHC g/dL 30.[address] 34[address] [facility], [address] [facility] [id number] 0 01/14 CBC w/aut o diff with refle x RDW-S D 37.0 54.0 39.3% FINAL [facility], [address] [facility] [id number] 0 01/14 CBC w/aut o diff with refle x RDW % 11.[address] [facility], [address] [facility] [id number] 0 01/14 CBC w/aut o diff with refle x PLT x10^3/ uL 120.[address] [facility], [address] [place] [id number] 0 01/14 CBC w/aut o diff with refle x MPV fL 6.5 12.0 9.6 [facility]AL [facility], [address] [facility] [id number] 0 01/14 CBC w/aut o diff with refle x Smear revie w None FINAL [facility], [address] [place] [id number] 0 01/14 CBC w/aut o diff with refle x NRBC % /100WB C 0.[address] [facility], [address] [place] [id number] 0 01/14 CBC w/aut o diff with refle x NRBC, absol [place], x 10^3/ uL x10^3/ uL 0.[address] [facility], [address] [facility] [id number] 0 01/14 CBC w/aut o diff with refle x Uma % % 40.[address] 70[address] [facility], [address] [place] [id number] 0 01/14 CBC w/aut o diff with refle x LY % % 15.[address] [facility], [address] [place] [id number] 0 01/14 CBC w/aut o diff with refle x MO % % 2.[address] [facility], [address] [place] [id number] 0 01/14 CBC w/aut o diff with refle x EO % % 0.[address] [facility], [address] [facility] [id number] 0 01/14 CBC w/aut o diff with refle x BA % % 0.[address] [facility], [address] [place] [id number] 0 01/14 CBC w/aut o diff with refle x IG % % 0.[address] [facility], [address] [place] [id number] 0 01/14 CBC w/aut o diff with refle x Uma # (ANC) x10^3/ uL 2.[address] [facility], [address] [place] [id number] 0 01/14 CBC w/aut o diff with refle x LY # x10^3/ uL 0.[address] [facility], [address] [place] [id number] 0 01/14 CBC w/aut o diff with refle x MO # x10^3/ uL 0.[address] [facility], [address] [place] [id number] 0 01/14 CBC w/aut o diff with refle x EO # x10^3/ uL 0.[address] [facility], [address] [place] [id number] 0 01/14 CBC w/aut o diff with refle x BA # x10^3/ uL 0.[address] [facility], [address] [place] [id number] 0 01/14 CBC w/aut o diff with refle x IG # x10^3/ uL 0.[address] [facility], [address] [place] [id number] 0 01/14 CMP Bilir ubin, total mg/dL 0.[address] [facility], [address] [place] [id number] 0 01/14 CMP AST/S GOT U/L 13.[address] 39[address] [facility], [address] [facility] [id number] 0 01/14 CMP ALT/S GPT U/L 7.[address] 52.[address] [facility], [address] [facility] [id number] 0 01/14 CMP Alkal ine phosp hatas e U/L 34.[address] [facility], [address] [facility] [id number] 0 01/14 CMP Gluco se mg/dL 70.0 105.[address] [facility], [address] [facility] [id number] 0 01/14 CMP BUN mg/dL 7.[address] [facility], [address] [facility] [id number] 0 01/14 CMP Creat inine mg/dL 0.[address] [facility], [address] [facility] [id number] 0 01/14 CMP Calci um mg/dL 8.4 [address] [facility], [address] [facility] [id number] 0 01/14 CMP Total prote in g/dL 6.[address] [facility], [address] [facility] [id number] 0 01/14 CMP Album in g/dL 3.[address] [facility], [address] [facility] [id number] 0 01/14 CMP Sodiu m mEq/L 135.[address] [facility], [address] [facility] [id number] 0 01/14 CMP Potas sium mEq/L 3.[address] [facility], [address] [facility] [facility] [id number] 0 01/14 CMP Chlor scarlet, mEq/L mEq/L 96.[address] [facility], [address] [facility] [facility] [id number] 0 01/14 CMP CO2 salo nt mEq/L 21.0 31.[address] [facility], [address] [facility] [facility] [id number] 0 01/14 CMP GFR estim ate mL/min /1.73m 2 57 Low Normal Range:Nor mal renal function >or= 60Moderat charlee decreased 30 - 59Severel y decreased 15 - 29Renal Failure < 15Please note the GFR value should be multiplie d by 1.210 if the patient is -A merican. FINAL [facility], [address] [facility] [facility] [id number] 0 01/14 LDH panel LDH U/L 140.[address] [facility], [address] [facility] [id number] 0 Medications Date Name Route Dose Frequency Instructions Start Date End Date Status Fill Status Indication 01/26 [place] 3-DHA-E PA-Fish Oil Oral Delayed Release 60 mg-90 mg-500 mg PO 1.0 capsul e,rodolfo yed releas e(/E C) DAILY active 03/27 Pantopr azole (Sodium [...] female Active Vital Signs Date Type Value 06/26/2023 Pain Scale 0.00 06/26/2023 Body Temperature 98.30 06/26/2023 BSA 1.89 06/26/2023 BMI 31.43 06/26/2023 Height 162.90 06/26/2023 Weight 83.40 06/26/2023 Intravascular Systolic 128 06/26/2023 Intravascular Diastolic 70 06/26/2023 Oxygen Saturation 97.00 06/26/2023 Respiratory Rate 18.00 06/26/2023 Heart Beat 66.00 01/15/2024 Intravascular Systolic 103 01/15/2024 Intravascular Diastolic 42 01/15/2024 Heart Beat 68.00 01/15/2024 Respiratory Rate 16.00 01/15/2024 BSA 1.88 01/15/2024 Oxygen Saturation 96.00 01/15/2024 Weight 82.10 01/15/2024 Pain Scale 0.00 01/15/2024 Body Temperature 96.80 01/15/2024 BMI 30.94 01/15/2024 Height 162.90
--- OUTSIDE RECORDS SUMMARY | 2025-04-10 16:25 | XMS_ITS | Encounter Summary ---
Author Organization [facility] Address [address] [place] [address] Phone Care Team Providers Care Bow Rehairer Name Role Phone Juliette Escoto MD Primary Care Provider [phone] Encounter Details Date Type Department Care Team (Late st Contact Info) Description 10/08/2024 Transcribe Orders Virtual Department [address] [place] [address] Iesha Prater PA [address] [place] [address] [phone] Breast screening (Primary Dx) Social History Tobacco Use Types [...] st Contact Info) Description 10/08/2024 Procedure Pass [facility] - [address] [place] [address] 04/17/2025 8:30 AM EST Appointment [address] [address] Michaelle Dexter [employer] [address] [place] [address] [phone] 04/17/2025 9:30 AM EST Appointment [address] [address] Michaelle Dexter NP [address] [place] [address] [phone] 04/17/2025 10:15 AM EST Appointment Non-Invasive Cardiology [address] [place] [phone] Michaelle Dexter NP [address] [place] [address] [phone] 04/17/2025 11:30 AM EST Appointment [address] [address] Michaelle Dexter NP [address] [place] [address] [phone] 04/28/2025 1:15 PM EST Appointment [address] [place] [address] Iesha Prater PA [address] [place] [phone] Scheduled Orders Name Type Priority Associated Diagnoses Orde r Schedule Mammogram Screening (Bilateral) Imaging Routine Breast screening Expected: 11/08/2024, Expires: 10/08/2025 documented as of this encounter Visit Diagnoses Diagnosis Breast screening- Primary Breast screening, unspecified documented in this encounter Care Teams Bow Rehairer Relationship Specialty Start Date End Date Juliette Escoto MD [address] [place] [address] [email or web address] PCP - General Family Medicine 04/19/24 documented as of this encounter Additional Source Comments The information contained in this document represents components of the legal health record. It is not the complete legal health record.[facility]
--- OUTSIDE RECORDS SUMMARY | 2025-04-10 16:25 | XMS_ITS | Encounter Summary ---
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 Not on file Comments Unknown Sex and Gender Information Value Date Recorded Sex Assigned at Not on file Legal Sex Female 3:05 AM EDT Gender Identity Not on file Sexual Orientation Not on file documented as of this encounter Plan of Treatment Upcoming Encounters Date Type Department Care Team (Late Contact Info) Description 10/08/2024 Procedure Pass [place] [place] [address] 04/17/2025 8:30 AM EST Appointment [address] [address] Michaelle eDxter STRAP BUCKLER [address] [place] [address] [phone] 04/17/2025 9:30 AM EST Appointment [address] [address] Michaelle Dexter NP [address] [place] [address] [phone] 04/17/2025 10:15 AM EST Appointment Non-Invasive Cardiology [address] [place] [phone] Michaelle Dexter STRAP BUCKLER [address] [place] [address] [phone] 04/17/2025 11:30 AM EST Appointment [address] [address] Michaelle Dexter STRAP BUCKLER [address] [place] [address] [phone] 04/28/2025 1:15 PM EST Appointment [address] [place] [address] Iesha Prater PA [address] [place] [address] [phone] documented as of this encounter Visit Diagnoses Diagnosis Osteopenia, unspecified location- Primary Breast screening Breast screening, unspecified documented in this encounter Care Teams Counter Clerk [employer] Relationship Specialty Start Date End Date Pcp, Unknown PCP - General 08/16/23 04/18/24 Juliette Escoto MD [address] [place] [address] [email or web address] PCP - General Family Medicine 04/19/24 documented as of this encounter Additional Source Comments The information contained in this document represents components of the legal health record. It is not the complete legal health record.[facility]
--- OUTSIDE RECORDS SUMMARY | 2025-04-10 16:25 | XMS_ITS | Encounter Summary ---
Author Organization [facility] Address [address] [place] [address] Phone Care Team Providers Care Income Tax Adjuster Name Role Phone Pcp, Unknown Primary Care Provider Paula Mckeon MD Primary Care Provider [phone] Encounter Details Date Type Department Care Team (Late st Contact Info) Description 11/16/2023 Ancillary Orders Virtual Department [address] [place] [address] Paula Escoto MD [address] [place] [phone] [email or web address] Osteopenia, unspecified location (Primary Dx); Breast screening; Other specified disorders of bone density and structure, unspecified site Social History Tobacco Use Types Packs/Day Years [...] st Contact Info) Description 10/08/2024 Procedure Pass [address] [place] [address] 04/17/2025 8:30 AM EST Appointment [address] [address] Michaelle Dexter NP [address] [place] [phone] 04/17/2025 9:30 AM EST Appointment [address] [address] Michaelle Dexter NP [address] [place] [phone] 04/17/2025 10:15 AM EST Appointment Non-Invasive Cardiology [address] [place] [phone] Michaelle Dexter NP [address] [place] [phone] 04/17/2025 11:30 AM EST Appointment [address] [address] Michaelle Dexter NP [address] [place] [address] [phone] 04/28/2025 1:15 PM EST Appointment [address] [place] [address] Iesha Prater PA [address] [place] [address] [phone] documented as of this encounter Results * BD DXA AXIAL (SPINE) WITH HIP (10/10/2024 1:26 PM EDT) Anatomical Region Laterality Modality Bone Density Bone Density 10/10/2024 1:20 PM EDT Impressions 10/15/2024 10:00 AM EDT Interpretation: Osteopenia. Narrative 10/15/2024 10:00 AM EDT Referred By: PAULA ESCOTO Indications: Osteopenia Scanner: [employer] A with serial# of [id number] located at [facility] Bone Density Scan (DXA) 10/10/24 Details [...] -2.5), or Osteoporosis (T-score <= -2.5). At [facility], T-scores are compared to peak bone [...] Referred By: PAULA ESCOTO Indications: Osteopenia Scanner: [employer] A with serial# of [id number] located at [facility] Bone Density Scan (DXA) 10/10/24 Details of [...] -2.5), or Osteoporosis (T-score <= -2.5). At [facility], T-scores are compared to peak bone [...] IMPRESSION: Interpretation: Osteopenia. us Paula Escoto MD IMG BD BONE DENSITY DEXA Fi nal Result documented in this encounter Visit Diagnoses Diagnosis Osteopenia, unspecified location- Primary Breast screening Breast screening, unspecified Other specified disorders of bone density and structure, unspecified site Osteopenia, unspecified location Other specified disorders of bone density and structure, unspecified site documented in this encounter Care Teams Income Tax Adjuster Relationship Specialty Start Date End Date Pcp, Unknown PCP - General 08/16/23 04/18/24 Paula Escoto MD [address] [place] [phone] [email or web address] PCP - General Family Medicine 04/19/24 documented as of this encounter Additional Source Comments The information contained in this document represents components of the legal health record. It is not the complete legal health record.[facility]
[2025-04-10 16:51] VITALS: BP 193/79; PULSE 59; RESP 16; TEMP 36.7; O2SAT 96
[2025-04-10 17:08] VITALS: BP 193/79; PULSE 59; RESP 16; TEMP 36.7; O2SAT 96
== END 2025-04-10 17:08 | disposition home or self-care (01) ==
PROVIDERS: Physician Assistant; Emergency Provider Emergency Medicine; PCP Family Medicine
DX: R07.89 Other chest pain (principal); R60.0 Localized edema; R06.02 Shortness of breath; I10 Essential (primary) hypertension; Z79.899 Other long term (current) drug therapy
CPT/HCPCS: 36415; 71045; 80053; 81001; 83880; 84484; 85025; 85610; 85730; 87086; 93005; 99285

== ENCOUNTER → 2025-04-10 12:21 | Outpatient (BNV) | payer MEDICARE, OTHER, SELFPAY | PROVIDERS: PCP Family Medicine; Visit Provider Internal Medicine Cardiovascular Disease | DX: R07.9 Chest pain, unspecified (principal) | CPT/HCPCS: 93010 ==

== ENCOUNTER → 2025-04-10 12:49 | Outpatient (BNV) | payer MEDICARE, OTHER, SELFPAY | PROVIDERS: PCP Family Medicine; Visit Provider Radiology Diagnostic Radiology | DX: R07.9 Chest pain, unspecified (principal) | CPT/HCPCS: 71045 ==

== ENCOUNTER 2025-05-16 12:04 | Outpatient (AMB) | payer MEDICARE, SELFPAY ==
[2025-05-16 12:05] VITALS: BP 175/70; PULSE 58; BMI 31.6
--- NOTE | 2025-05-16 12:05 | A.OFFVIS_ITS ---
Vital Signs 05/16/25 12:05 Height 5 ft 3 in Weight 178 lb 9.191 oz BMI 31.6 BP 175/70 H Blood Pressure Location Lt brachial Position Sitting Pulse 58 Intake Visit Reasons: F/U Intake Note: Judy presents in the office as a follow up. CC: She states that this is a follow up and the last time she was here she was never scheduled for EGD because she was supposed to go somewhere else but now she would like to have it done here. Allergies Penicillins (PCN) Allergy (Verified 04/10/25 12:46) Unknown Sulfa (Sulfonamide Antibiotics) Allergy (Verified 04/10/25 12:46) Unknown HPI HPI F/U: Details: LAST VISIT: GERD (gastroesophageal reflux disease) Plan Upper GI series reviewed with patient and discussed. Patient will take the pantoprazole in the morning instead of at bedtime. Avoid dietary triggers in late night snacking. Staying upright for minimum 3 hours after meals discussed with patient. Patient will get of his records from her endoscopy that she will have in March. Please request all the records from GI from [facility]. Patient will return in 3 months, sooner on as needed basis. She is agreeable to this plan and verbalizes understanding of instructions. She was given the opportunity to ask questions and all questions answered. TODAY'S VISIT Patient is here today for follow-up of in to discuss going for upper endoscopy. Patient was supposed to have upper endoscopy in [place]. Was scheduled for the , however back in March patient had chest pain and was seen in the ER here at [facility] [place]. Patient was referred to see Cardiology and saw Dr. Peñaloza in [place] at [facility]. Patient reports that she had a stress test, Holter monitor and everything came back normal. Patient would like to have her procedure to be done here. Patient would like to transfer care locally so she does not have to travel back to all of any. Patient reports that she is feeling better after switching the pantoprazole to morning time. Patient denies dyspepsia, dysphagia or odynophagia. [facility] Medical History GERD (gastroesophageal reflux disease) HLD (hyperlipidemia) HTN (hypertension) Social History Household Members: None Housing: House Do you presently have visiting nurse or other home services: No Patient Tobacco Use Status: Tobacco use Unknown e-Cigarette/Vaping Use: Never Used Second Hand Smoke Exposure: No service: No Physical Exam Vital Signs: BMI result Body Mass Index 31.6 Assessment & Plan Assessment & Plan (1) GERD (gastroesophageal reflux disease): Code(s): K21.9 - Gastro-esophageal reflux disease without esophagitis Category: Medical Qualifiers: Esophagitis presence: esophagitis presence not specified Qualified Code(s): K21.9 - Gastro-esophageal reflux disease without esophagitis (2) Esophageal dysmotility: Code(s): K22.4 - Dyskinesia of esophagus Plan Patient will continue taking pantoprazole in the morning. Avoid dietary triggers in late on snacking. Staying upright for minimum 3 hours after meals discussed with patient. Patient will be scheduled for upper endoscopy and I will see her after the procedure. Patient is agreeable to current plan of in verbalizes understanding of instructions. She was given the opportunity to ask questions and all questions answered. Please call Dr. Al for official cardiac clearance: [phone] Orders: Referrals GI Procedure Notification Z12.11 - Encounter for screening for malignant neoplasm of colon Coding Level of Care Code Est Pt Level 3 (00449) Diagnoses Gastroesophageal reflux disease, unspecified whether esophagitis present K21.9 Esophagitis presence: esophagitis presence not specified Esophageal dysmotility K22.4 Time Spent (min) 25 Comment 15 minutes spent with patient and additional 10 minutes spent reviewing her records
== END 2025-05-16 14:09 | disposition home or self-care (01) ==
LOC: HO.HGI 12:04
PROVIDERS: PCP Family Medicine; Visit Provider Nurse Practitioner Family
DX: K21.9 Gastro-esophageal reflux disease without esophagitis (principal); K22.4 Dyskinesia of esophagus
CPT/HCPCS: 99213

== ENCOUNTER → 2025-05-16 12:04 | Outpatient (BNVA) | payer MEDICARE, SELFPAY | PROVIDERS: PCP Family Medicine; Visit Provider Nurse Practitioner Family | DX: K21.9 Gastro-esophageal reflux disease without esophagitis (principal); K22.4 Dyskinesia of esophagus | CPT/HCPCS: 99212 ==